=== PATIENT | male | born 1960 | race Caucasian/White ===

== ENCOUNTER 2022-05-21 12:55 | Inpatient (IN) | payer OTHER ==
[~2022-05-21] VITALS: Ht 180.3 cm; Wt 68.9 kg
[~2022-05-21 12:55] MED LIST: FURO40TA5 PO; SPIR100T5 PO; URSO300C24 PO
[2022-05-21 13:00] VITALS: BP_SYST 128
--- NOTE | 2022-05-21 13:46 | NUR ---
Jenna bahena in [facility] - 05/21/22 at 1353 by [email or web address] WENT TO TRIAG PT BUT PT IS NO WHERE TO BE FOUND. LOOKED IN WAITING ROOM, OUTSIDE ER , AND BATHROOM BUT NO ANSWER.
--- NOTE | 2022-05-21 13:55 | NUR ---
RECEIVED PT FROM GHASSAN SETHI. PT HAS C/O RIGHT NECK PAIN. PT HAS LYMPH INFLAMMATION DUE TO CANCER DX. PT IS AAOX4. NORMAL S1S2 NOTED, SINUS TACH HR 100'S. PT DENIES C/P AND PRESSURE. RESP SHALLOW, TACHY AT 32BPM. DR. ORTIZ MADE AWARE. ON R/A 02 SAT AT 97%. RHOCHI NOTED TO BILATERAL LOWER LOBES. PT HAS NAUSEA. DENIES DIARRHEA AND CONSTIPATION. DISTAL PULSES NORMAL, SKIN WARM, CAP REFILL < 3 SECS, NO EDEMA. IV CATH PLACED TO RAC 20G. SIDERAILS UP X2.
[2022-05-21] MEDS ORDERED: IPRATROPIUM/ALBUTEROL SULFATE 3 ML AMPUL.NEB (DUONEB) ONE (14:06)
[2022-05-21] MEDS ORDERED: IPRATROPIUM/ALBUTEROL SULFATE 3 ML AMPUL.NEB (DUONEB) INH ONE (14:15)
[2022-05-21] MEDS ORDERED: DEXAMETHASONE SOD PHOSPHATE 10 MG/ML VIAL IVP ONE (14:15)
--- NOTE | 2022-05-21 14:30 | NUR ---
DR. ORTIZ TO BEDSIDE TO ASSESS PT.
--- NOTE | 2022-05-21 14:45 | NUR ---
EKG COMPLETED, LABS DRAWN.
[2022-05-21] MEDS ORDERED: NACL 0.9% 1,000 ML IV ONE ×2 (15:45→16:45)
[2022-05-21 16:06] LABS: ANION GAP 14 (5-15); CALCIUM 9.1 mg/dL (8.4-11.0); CHLORIDE 91 mmol/L (98-107); CREATININE 2.07 mg/dL (0.55-1.30); GLUCOSE 269 mg/dL (70-99); UREA NITROGEN, BLOOD 99 mg/dL (8-21)
[2022-05-21 16:18] LABS: ALANINE AMINOTRANSFERASE 24 U/L (12-78); ALBUMIN 3.1 g/dL (3.4-4.8); ASPARTATE AMINOTRANSFERASE 13 U/L (10-37); TOTAL BILIRUBIN 0.8 mg/dL (0.0-1.0)
[2022-05-21 16:25] LABS: GFR AFRICAN AMERICAN 42 mL/min (>90)
[2022-05-21 16:29] LABS: POTASSIUM 6.1 mmol/L (3.5-5.1)
[2022-05-21] MEDS ORDERED: METO25TA3 PO (16:34)
[2022-05-21] MEDS ORDERED: TACR0.5C PO ×2 (16:34)
[2022-05-21] MEDS ORDERED: PRED20TA PO (16:34)
[2022-05-21] MEDS ORDERED: SODIUM ZIRCONIUM CYCLOSILICATE 10 GM POWD.PACK PO ONE (16:45)
[2022-05-21 17:36] LABS: HEMATOCRIT 42.2 % (36-54); MEAN CORPUSCULAR VOLUME 88 fL (79.0-98.0); PLATELET COUNT (AUTO) 86 K/uL (130-430); RED BLOOD CELL COUNT(AUTO) 4.82 MIL/uL (4.2-6.2); RED CELL DISTRIBUTION WIDTH 12.5 % (9.0-15.0)
--- NOTE | 2022-05-21 17:36 | NUR ---
NS 1000 IV INITIATED AT 150ML/HOUR, STOP TIME 1237. LOKELMA PO GIVEN FOR K+=6L.1. REPORTED TO DR. ORTIZ THAT PT HAS MOUTH SORES AND REQUESTING SOMETHING TO HELP ENABLE HIM TO DRINK AND EAT.
[2022-05-21 17:40] LABS: WHITE BLOOD COUNT (AUTO) 0.3 K/uL (4.8-10.8)
[2022-05-21 18:18] LABS: BILIRUBIN,URINE NEGATIVE (NEGATIVE); BLOOD, URINE NEGATIVE (NEGATIVE); COLOR,URINE YELLOW (YELLOW); GLUCOSE,URINE NEGATIVE (NEGATIVE); KETONES,URINE NEGATIVE (NEGATIVE); LEUKOCYTE ESTERASE ,URINE NEGATIVE (NEGATIVE); NITRITE, URINE NEGATIVE (NEGATIVE); PH,URINE 5.5 (5.0-8.0); PROTEIN URINE TRACE (NEGATIVE); UROBILINOGEN,URINE 0.2 (0.2-1.0)
[2022-05-21 18:32] LABS: CLARITY/URINE SLIGHTLY HAZY (CLEAR)
--- NOTE | 2022-05-21 18:36 | NUR ---
ADAdmit bed requested Patient will be admitted to care of Dr. COMER. Admitted to TELEMETRY unit. Diagnosis DEHYDRATION, ANA Inpatient (Yes or No) YES Observation (Yes or No) NO Orientation concerns or request close to nursing station (Yes or No) NO Covid Status PENDING On vent or bipap NO Isolation requirements REVERSE ISOLATION Needs a sitter NO From Home (Yes or if No enter name of facility) YES Requires Dialysis (Yes or No) NO Med Rec Completed (Yes of No) YES
[2022-05-21 19:06] LABS: BACTERIA,URINE FEW /HPF (None Seen); RBC,URINE 0-3 /HPF (0-3)
[2022-05-21 19:07] LABS: MUCUS,URINE None Seen /LPF (None Seen); URINE AMORPHOUS URATE 2+ /HPF (None Seen)
[2022-05-21 19:11] LABS: BAND % (MANUAL) 16 % (0-6); BASOPHILS % (MANUAL) 0 % (0-2); EOSINOPHILS % (MANUAL) 0 % (0-7); LYMPHOCYTES % (MANUAL) 32 % (20-46); MONOCYTES % (MANUAL) 24 % (0-11)
--- NOTE | 2022-05-21 19:18 | NUR ---
ENDORSED ALL CARE TO GHASSAN CLEMENT. ALL QUESTIONS AND CONCERNS ADDRESSED.
[2022-05-21] MEDS: D5/0.45 NS 1,000 ML IV SCH ×2 (19:34→23:51)
--- NOTE | 2022-05-21 19:46 | NUR ---
Pt resting comfortably in bed, no signs of distress/discomfort. Breathing adequately on RA. Denies any pain/discomfort at this time. VSS.
[2022-05-21] MEDS ORDERED: TBO-FILGRASTIM 480 MCG/0.8 ML SYRINGE SUBCUT ONE (20:00)
[2022-05-21] MEDS ORDERED: CEFEPIME 2 GM in D5W 100 ML IV ONE (21:00)
--- NOTE | 2022-05-21 21:43 | NUR ---
Patient will be admitted to care of MD Ambrosio . Admitted to Tele unit, room 101A. Complete and up to date summary report printed. SBAR report given at bedside to receiving RN Paulino with opportunity for questions.
--- NOTE | 2022-05-21 22:05 | NUR ---
Admission Note Received patient from ER with diagnosis of DEHDRATIOn, ACUTE KIDNEY INJURY. Initial Plan of Care discussed-patient verbalized understanding. Oriented to room, call light, pain management and safety.
[2022-05-21 22:23] VITALS: BP_SYST 131
[2022-05-21 23:46] LABS: HEMOGLOBIN 14.4 g/dL (14.0-18.0); MEAN CORPUSCULAR HEMOGLOBIN 30 pg (27-31); MEAN CORPUSCULAR HGB CONC 34 % (32-36)
[2022-05-22] VITALS (11 sets, daily range): BP systolic 126–148
--- NOTE | 2022-05-22 03:14 | NUR ---
IV dislodged at this time Inserted new IV [id number]
--- NOTE | 2022-05-22 07:34 | NUR ---
CLOSING NOTES Patient resting in bed - no s/s pain or distress noted. Respirations even and unlabored - head of bed elevated. IV site patent - no s/s redness, infection, or infiltration. Bed locked and in lowest position. Call light within reach.
[2022-05-22 07:40] LABS: BASOPHILS % (AUTO) 0.1 % (0.0-2.0); EOSINOPHILS % (AUTO) 0.4 % (0.0-4.0); HEMATOCRIT 42.3 % (36-54); LYMPHOCYTES # (AUTO) 0.2 K/uL (1.0-5.5); LYMPHOCYTES % (AUTO) 35.9 % (20.5-51.5); MEAN CORPUSCULAR VOLUME 89 fL (79.0-98.0); MONOCYTES # (AUTO) 0.2 K/uL (0.0-1.0); MONOCYTES % (AUTO) 32.1 % (1.7-9.3); PLATELET COUNT (AUTO) 107 K/uL (130-430); RED BLOOD CELL COUNT(AUTO) 4.75 MIL/uL (4.2-6.2); RED CELL DISTRIBUTION WIDTH 12.6 % (9.0-15.0)
[2022-05-22 07:43] LABS: ALBUMIN 2.3 g/dL (3.4-4.8); CALCIUM 8.3 mg/dL (8.4-11.0); CREATININE 1.72 mg/dL (0.55-1.30); POTASSIUM 5.5 mmol/L (3.5-5.1); TOTAL BILIRUBIN 1.2 mg/dL (0.0-1.0)
--- NOTE | 2022-05-22 08:00 | NUR ---
late entry due to care 0800- pt stable c/o of mild sob. o2 saturation 95%. notin acute distress. vials stable res labored. ivf infusing well. will continue to monitor 0830- md dr cruz called and notified about condition. new order received. 1030- family at bed side. oral suctuon doen. mild yellow color secretion noted. denies any pain at this time. sr on tele. 2 l oxygen applied via nasal cannula. will conitnue to monitor
[2022-05-22] MEDS: CEFEPIME 2 GM in D5W 100 ML IV SCH ×2 (08:30→21:14)
--- NOTE | 2022-05-22 08:41 | NUR ---
Attending MD Dr Wright was called, re: MEDICATION ORDER FOR FEVER. SPOKE TO FEBRUARY.
[2022-05-22 09:03] LABS: INR 1.3 (0.80-1.20); PROTHROMBIN TIME 12.9 SECS (9.5-12.5)
[2022-05-22] MEDS: ALBUTEROL SULFATE 0.083% 2.5 MG/3 ML VIAL.NEB INH SCH ×5 (09:15→23:00)
[2022-05-22] MEDS ORDERED: PANTOPRAZOLE SODIUM 40 MG/VIAL (PROTONIX) IVP ONE (09:30)
--- NOTE | 2022-05-22 09:35 | NUR ---
CONSULTATION PAGED/CALLED Reason for Consultation: [] FEVER/SOB Person Who was Notified: [] BRITTANY Consulting Physician: [] DR KNOX Mobile Mechanic Specialty: [] ID Ordering Physician: [] DR LUIS
--- NOTE | 2022-05-22 09:36 | NUR ---
CONSULTATION PAGED/CALLED Reason for Consultation: [] SOB/FEVER Person Who was Notified: [] LENO Consulting Physician: [] DR CANCHOLA Asphalt Mixing Machine Operator Specialty: [] PULMO Ordering Physician: [] DR LUIS
[2022-05-22] MEDS: LIDOCAINE VISCOUS 2%, 15 ML UDC MM PRN ×2 (10:22→16:11)
[2022-05-22] MEDS: ACETAMINOPHEN 500 MG TABLET PO PRN ×2 (10:25→22:06)
--- NOTE | 2022-05-22 10:45 | NUR ---
as per pt takes prograft 1 mg in the morning 0.5mg 2 tabs and 1 mg in the night 0.5 mg 2 tabs entered in med. rec . pharmacist on duty verified with family. dr wisdom notified for med rec.
[2022-05-22] MEDS ORDERED: predniSONE 20 MG TABLET PO ONE (11:30)
[2022-05-22] MEDS ORDERED: predniSONE 10 MG TABLET PO ONE (11:30)
[2022-05-22] MEDS ORDERED: TACROLIMUS ANHYDROUS 1 MG CAPSULE (PROGRAF) PO ONE (11:30)
[2022-05-22] MEDS ORDERED: TACROLIMUS ANHYDROUS 0.5 MG CAPSULE (PROGRAF) PO ONE (11:30)
[2022-05-22 12:09] LABS: NEUTROPHILS # (AUTO) 0.2 K/uL (1.8-7.7); WHITE BLOOD COUNT (AUTO) 0.6 K/uL (4.8-10.8)
[2022-05-22 12:11] LABS: NEUTROPHILS % (AUTO) 31.5 % (40.0-70.0)
--- NOTE | 2022-05-22 12:15 | NUR ---
late entry due to care abg results notified to dr roque.
--- NOTE | 2022-05-22 12:20 | NUR ---
ONCO/ERICKA MD DR BARKER WAS CALLED, RE: WBC OF 0.6. SPOKE TO MAXIM.
[2022-05-22 12:40] LABS: HEMOGLOBIN 14.3 g/dL (14.0-18.0)
[2022-05-22 12:41] LABS: MEAN CORPUSCULAR HEMOGLOBIN 30 pg (27-31); MEAN CORPUSCULAR HGB CONC 34 % (32-36)
--- NOTE | 2022-05-22 13:30 | NUR ---
pt is having sob. looks in res distress. breathing tx given by RT. RES 30. O2 SATURATION 95%. DR COMER NOTIFIED. RECEIVED ORDER FOR ICU TRANSFER.
--- NOTE | 2022-05-22 14:25 | NUR ---
PT TRANSFERRED TO ICU IN STABLE CONDITION . REPORT GIVEN TO SALESPERSON MEN'S AND BOYS' CLOTHING .
[2022-05-22] MEDS: D5/0.45 NS 1,000 ML IV SCH (14:45)
--- NOTE | 2022-05-22 15:00 | NUR ---
REPORT RECEIVED FROM GHASSAN SANTACRUZ IN [facility]. PATIENT TRANSFERRED TO ICU BED 8. PATIENT SITTING SEMI FOWLERS IN BED ON O2 AT 2LPM VIA NASAL CANNULA. O2 SATURATION 95%. PATIENT STATES HE IS ONLY MILDLY SHORT OF BREATH WHEN MOVING AROUND. VITALS SIGNS ARE STABLE WITH SAFETY PRECAUTIONS IN PLACE. 22 GAUGE IV TO THE RIGHT FOREARM ON TRANSFER WITH IV FLUIDS AT BEDSIDE. SECONDARY IV STARTED AND NEW BAG OF IV FLUIDS INITIATED. PATIENT COMPLAINS OF 5/10 PAIN TO MOUTH DUE TO MUCOSITIS; PRN MEDICATION GIVEN.
--- NOTE | 2022-05-22 17:28 | NUR ---
Called Ruba Buitrago with a consult, he will be here later today
--- NOTE | 2022-05-22 17:37 | NUR ---
Called Dr. Mac with a consult,spoke with Zeinab from the exchange
[2022-05-22 18:07] LABS: CALCIUM 8.4 mg/dL (8.4-11.0); CREATININE 1.5 mg/dL (0.55-1.30)
--- NOTE | 2022-05-22 20:00 | NUR ---
OPENING NOTE PT A0X4 AND LAYING IN THE BED WITH AND DAUGHTER AT THE BEDSIDE. PT HAS O2 AT 2LPM VIA NASAL CANNULA. O2 SATURATION 98%. ALL SAFETY PRECAUTIONS ARE IN PLACE. PT HAS 22 GAUGE IV TO THE RIGHT FOREARM AND 20 G IN LEFT F/A WITH FLUIDS INFUSING. PATIENT COMPLAINS OF 5/10 PAIN TO MOUTH DUE TO MUCOSITIS. WILL MEDICATED FOR THE PAIN
--- NOTE | 2022-05-22 20:30 | NUR ---
LOOSE STOOL PT HAD LOOSE STOOL BUT ALSO URINATED SO WILL OBTAIN SAMPLE WITH NEXT STOOL
[2022-05-22] MEDS ORDERED: TACROLIMUS ANHYDROUS 1 MG CAPSULE (PROGRAF) PO SCH (21:00)
[2022-05-22] MEDS: TBO-FILGRASTIM 480 MCG/0.8 ML SYRINGE SUBCUT SCH ×2 (21:00→21:30)
--- NOTE | 2022-05-22 21:00 | NUR ---
PAIN MEDS PT GIVEN LIDOCAINE FOR MOUTH PAIN HE RATED 6/10
[2022-05-22] MEDS ORDERED: TEMAZEPAM 7.5 MG CAPSULE ONE (22:07)
--- NOTE | 2022-05-22 22:30 | NUR ---
INSOMNIA/ANXIETY PT C/O OF NOT BEING ABLE TO SLEEP AND FEELING ANXIOUS. MD WAS CALLED
--- NOTE | 2022-05-22 22:35 | NUR ---
CALLED/ DR JOSE DE LUNA PT C/O ANXIETY AND ANXIOUS. ORDER RESTORIL 7.5MG PRN QHS
--- NOTE | 2022-05-22 23:50 | NUR ---
PAIN PT C/O BODY BACK PAIN FORM THEBED. RATES PAIN 5/10 PT GIVEN TYLENOL.
[2022-05-23] VITALS (23 sets, daily range): BP systolic 105–156
[2022-05-23] MEDS: D5/0.45 NS 1,000 ML IV SCH ×2 (00:45→11:37)
[2022-05-23] MEDS: ALBUTEROL SULFATE 0.083% 2.5 MG/3 ML VIAL.NEB INH SCH ×6 (03:00→23:00)
[2022-05-23] MEDS: LIDOCAINE VISCOUS 2%, 15 ML UDC MM PRN ×3 (04:45→20:45)
--- NOTE | 2022-05-23 07:05 | NUR ---
Received report from shiftman RN, and assumed patient care.
[2022-05-23 07:29] LABS: EOSINOPHILS % (AUTO) 0.4 % (0.0-4.0); HEMATOCRIT 42.1 % (36-54); LYMPHOCYTES # (AUTO) 0.3 K/uL (1.0-5.5); LYMPHOCYTES % (AUTO) 20.6 % (20.5-51.5); MEAN CORPUSCULAR VOLUME 88 fL (79.0-98.0); MONOCYTES # (AUTO) 0.7 K/uL (0.0-1.0); MONOCYTES % (AUTO) 44.8 % (1.7-9.3); PLATELET COUNT (AUTO) 91 K/uL (130-430); RED CELL DISTRIBUTION WIDTH 12.7 % (9.0-15.0)
[2022-05-23] MEDS: PANTOPRAZOLE SODIUM 40 MG/VIAL (PROTONIX) IVP SCH (08:08)
[2022-05-23] MEDS: predniSONE 10 MG TABLET PO SCH (08:08)
[2022-05-23] MEDS: METOPROLOL SUCCINATE 25 MG TAB.SR.24H (TOPROL XL) PO SCH (08:09)
[2022-05-23] MEDS: predniSONE 20 MG TABLET PO SCH (08:09)
[2022-05-23] MEDS: CEFEPIME 2 GM in D5W 100 ML IV SCH ×2 (08:10→20:48)
[2022-05-23 08:15] LABS: ALBUMIN 2.2 g/dL (3.4-4.8); CALCIUM 8.9 mg/dL (8.4-11.0); CREATININE 1.61 mg/dL (0.55-1.30); PHOSPHORUS 3.1 mg/dL (2.7-4.5); POTASSIUM 4.9 mmol/L (3.5-5.1); TOTAL BILIRUBIN 0.8 mg/dL (0.0-1.0)
--- NOTE | 2022-05-23 08:48 | NUR ---
Dr. Mac rounded at bedside, MD explained medical updates at bedside. Patient's (Violeta) at bedside, no additional questions noted at the moment, or new orders noted at the moment. Will reinforce if needed throughout the shift.
[2022-05-23] MEDS ORDERED: TACROLIMUS ANHYDROUS 1 MG CAPSULE (PROGRAF) PO SCH (09:00)
[2022-05-23 09:59] LABS: WHITE BLOOD COUNT (AUTO) 1.5 K/uL (4.8-10.8)
--- NOTE | 2022-05-23 09:59 | NUR ---
Received critical lab value (please see EMR for further details), will call Dr. Macedo for further instructions.
[2022-05-23 10:00] LABS: NEUTROPHILS # (AUTO) 0.5 K/uL (1.8-7.7)
--- NOTE | 2022-05-23 10:14 | NUR ---
Dr. Macedo called backMD is aware of critical lab value, no additional orders noted at the moment. Will reinforce if needed throughout the shift.
--- NOTE | 2022-05-23 10:25 | NUR ---
Dr. Cronin called for condition updates, is aware of critical lab values, will make some changes on meditech, no additional orders noted at the moment.
[2022-05-23] MEDS: MICAFUNGIN SODIUM 100 MG in NS 100 ML IV SCH (11:39)
[2022-05-23 11:44] LABS: NEUTROPHILS % (AUTO) 34.2 % (40.0-70.0)
--- NOTE | 2022-05-23 12:00 | NUR ---
Dr. Macedo rounded at bedside, MD is aware of patient's current situation no additional orders noted at the moment. Will reinforce if needed throughout the shift, MD is aware of abnormal values will wait for further instructions.
[2022-05-23] MEDS: D5NS 1,000 ML IV SCH ×2 (12:49→22:15)
--- NOTE | 2022-05-23 13:00 | NUR ---
Dr. Ambrosio rounded at bedside, provided medical updates to family members with patient. MD is OK with holding patient in ICU for one more day and will reevaluate tomorrow if patient is OK to be downgraded. No additional orders noted at the moment, will reinforce if needed throughout the shift.
--- NOTE | 2022-05-23 15:30 | NUR ---
Dietitian Recommendations * Pureed diet, Mauricio BID, Ensure Plus High Protein TID (supplements yield 1230 kcal/day, 60 gm protein/day) * Offer yogurts TID w/ meals * Encourage increase PO intakes LP, MS, RD Please refer to Nutrition Assessment for details. Addendum: 05/23/22 at [address] Amended: Links added.
[2022-05-23] MEDS: TBO-FILGRASTIM 480 MCG/0.8 ML SYRINGE SUBCUT SCH (16:23)
--- NOTE | 2022-05-23 16:39 | NUR ---
Patient had a BM, changed patient's linens and tolerated the big turns. Educated the patient about medications to help sleep for the night, and it is recommended to take during night time, in order to keep circadian rhythm within patient's range during daytime. Patient understands teaching and will reinforce if needed throughout the shift.
--- NOTE | 2022-05-23 20:00 | NUR ---
OPENING NOTE PT A0X4 AND LAYING IN THE BED WITH AT THE BEDSIDE. PT HAS O2 AT 2LPM VIA NASAL CANNULA. O2 SATURATION 98%. ALL SAFETY PRECAUTIONS ARE IN PLACE. PT HAS 22 GAUGE IV TO THE RIGHT FOREARM AND 20 G IN LEFT F/A WITH FLUIDS INFUSING. PATIENT COMPLAINS OF 4/10 PAIN TO MOUTH DUE TO MUCOSITIS. WILL MEDICATED FOR THE PAIN
[2022-05-23] MEDS ORDERED: LIDOCAINE VISCOUS 2%, 15 ML UDC ONE (20:44)
[2022-05-23] MEDS: TEMAZEPAM 7.5 MG CAPSULE PO PRN (20:45)
[2022-05-23] MEDS: ACETAMINOPHEN 500 MG TABLET PO PRN (20:49)
[2022-05-23] MEDS: TACROLIMUS ANHYDROUS 1 MG CAPSULE (PROGRAF) PO SCH (20:49)
[2022-05-24] VITALS (24 sets, daily range): BP systolic 78–161
[2022-05-24] MEDS: LIDOCAINE VISCOUS 2%, 15 ML UDC MM PRN (00:20)
[2022-05-24] MEDS ORDERED: LIDOCAINE VISCOUS 2%, 15 ML UDC ONE (00:22)
--- NOTE | 2022-05-24 01:00 | NUR ---
Paged career education teacher dr brown regarding patient's heart rate and condition. awaiting call back.
--- NOTE | 2022-05-24 01:20 | NUR ---
call back x2. awaiting call back
--- NOTE | 2022-05-24 01:49 | NUR ---
MD morelos called back. Primary nurse on phone with
--- NOTE | 2022-05-24 01:49 | NUR ---
Called pulmonary. awaiting call back.
[2022-05-24] MEDS ORDERED: FUROSEMIDE 40 MG/4 ML VIAL IVP ONE (02:00)
[2022-05-24] MEDS ORDERED: FUROSEMIDE 40 MG/4 ML VIAL ONE (02:02)
--- NOTE | 2022-05-24 02:24 | NUR ---
3rd callback to primary doctor
--- NOTE | 2022-05-24 02:28 | NUR ---
Dr brown called back. New orders received.
[2022-05-24] MEDS ORDERED: LORazepam 2 MG/ML VIAL IVP ONE (02:30)
[2022-05-24] MEDS ORDERED: LORazepam 2 MG/ML VIAL ONE (02:45)
[2022-05-24] MEDS: ALBUTEROL SULFATE 0.083% 2.5 MG/3 ML VIAL.NEB INH SCH ×6 (03:00→23:15)
--- NOTE | 2022-05-24 03:05 | NUR ---
called back. Reported ABG orders. New orders received.
[2022-05-24] MEDS ORDERED: AMIODARONE HCL IV SCH (05:45)
[2022-05-24] MEDS ORDERED: D5W IV SCH (05:45)
[2022-05-24] MEDS ORDERED: AMIODARONE HCL 450 MG in D5W 241 ML IV SCH (05:45)
[2022-05-24] MEDS: PANTOPRAZOLE SODIUM 40 MG/VIAL (PROTONIX) IVP SCH (08:27)
[2022-05-24] MEDS: predniSONE 20 MG TABLET PO SCH (08:28)
[2022-05-24] MEDS: predniSONE 10 MG TABLET PO SCH (08:29)
[2022-05-24] MEDS: ACETAMINOPHEN 500 MG TABLET PO PRN ×3 (08:30→21:57)
[2022-05-24] MEDS: CEFEPIME 2 GM in D5W 100 ML IV SCH ×2 (08:31→21:58)
[2022-05-24] MEDS: METOPROLOL SUCCINATE 25 MG TAB.SR.24H (TOPROL XL) PO SCH (08:31)
[2022-05-24 09:33] LABS: EOSINOPHILS % (AUTO) 0.1 % (0.0-4.0); HEMATOCRIT 42.1 % (36-54); LYMPHOCYTES # (AUTO) 0.3 K/uL (1.0-5.5); MEAN CORPUSCULAR VOLUME 87 fL (79.0-98.0); MONOCYTES % (AUTO) 0.6 % (1.7-9.3); NEUTROPHILS % (AUTO) 54.3 % (40.0-70.0); PLATELET COUNT (AUTO) 102 K/uL (130-430); RED BLOOD CELL COUNT(AUTO) 4.85 MIL/uL (4.2-6.2); RED CELL DISTRIBUTION WIDTH 12.7 % (9.0-15.0)
[2022-05-24] MEDS: TACROLIMUS ANHYDROUS 1 MG CAPSULE (PROGRAF) PO SCH ×2 (09:55→21:00)
[2022-05-24] MEDS ORDERED: FUROSEMIDE 20 MG/2 ML VIAL IVP ONE (10:00)
[2022-05-24] MEDS: ACYCLOVIR IV 500 MG in D5W 100 ML IV SCH (10:06)
[2022-05-24 10:25] LABS: ALBUMIN 1.9 g/dL (3.4-4.8); CALCIUM 8.8 mg/dL (8.4-11.0); CREATININE 2.02 mg/dL (0.55-1.30); POTASSIUM 5.1 mmol/L (3.5-5.1); TOTAL BILIRUBIN 0.7 mg/dL (0.0-1.0)
[2022-05-24 11:10] LABS: NEUTROPHILS # (AUTO) 0.4 K/uL (1.8-7.7); WHITE BLOOD COUNT (AUTO) 0.7 K/uL (4.8-10.8)
[2022-05-24] MEDS: D5NS 1,000 ML IV SCH ×2 (11:30→19:15)
[2022-05-24] MEDS: MICAFUNGIN SODIUM 100 MG in NS 100 ML IV SCH (11:58)
[2022-05-24] MEDS: ALBUMIN HUMAN 25% 100 ML IV SCH ×2 (13:35→15:35)
[2022-05-24] MEDS: TBO-FILGRASTIM 480 MCG/0.8 ML SYRINGE SUBCUT SCH (17:33)
[2022-05-24 19:12] LABS: CALCIUM 8.3 mg/dL (8.4-11.0); CREATININE 2.29 mg/dL (0.55-1.30); POTASSIUM 5.1 mmol/L (3.5-5.1)
--- NOTE | 2022-05-24 20:00 | NUR ---
OPENING NOTE PT A0X4 AND LAYING IN THE BED WITH AT THE BEDSIDE. PT CURRENTLY IS ON BIPAP O2 SATURATION 98%. ALL SAFETY PRECAUTIONS ARE IN PLACE. PT HAS 22 GAUGE IV TO THE RIGHT FOREARM AND 20 G IN LEFT F/A WITH FLUIDS INFUSING. PATIENT COMPLAINS OF 4/10 PAIN TO MOUTH DUE TO MUCOSITIS. WILL MEDICATED FOR THE PAIN
--- NOTE | 2022-05-24 20:30 | NUR ---
FEBRILE PT HAS TEMP OF 100.4. PT GIVEN TYLENOL AND COOLING MEASURE ARE IN PLACE.
[2022-05-24] MEDS: TEMAZEPAM 7.5 MG CAPSULE PO PRN (21:57)
[2022-05-24] MEDS: METOPROLOL TARTRATE 25 MG TABLET PO SCH (21:58)
--- NOTE | 2022-05-24 22:00 | NUR ---
BIPAP REMOVED PT REMOVED FROM BIPAP TO ADMINISTER MEDICATIONS. PT REPORTS FEELING BETTER AND DECREASE SOB. PT PLACED ON O2 5L VIA N/C AND SAT'S REMAIN @ 95%. PT TAKEN OFF OF BIPAP
[2022-05-25] VITALS (22 sets, daily range): BP systolic 94–129
[2022-05-25] MEDS: ALBUTEROL SULFATE 0.083% 2.5 MG/3 ML VIAL.NEB INH SCH ×6 (03:34→23:10)
[2022-05-25] MEDS: D5NS 1,000 ML IV SCH ×3 (04:40→21:25)
--- NOTE | 2022-05-25 06:45 | NUR ---
FEBRILE PT HAS TEMP OF 100.9 TYLENOL GIVEN
[2022-05-25 07:19] LABS: BASOPHILS % (AUTO) 0.1 % (0.0-2.0); EOSINOPHILS % (AUTO) 0.1 % (0.0-4.0); HEMATOCRIT 35.3 % (36-54); LYMPHOCYTES # (AUTO) 0.3 K/uL (1.0-5.5); LYMPHOCYTES % (AUTO) 23.7 % (20.5-51.5); MEAN CORPUSCULAR VOLUME 89 fL (79.0-98.0); MONOCYTES % (AUTO) 1.2 % (1.7-9.3); NEUTROPHILS % (AUTO) 74.9 % (40.0-70.0); PLATELET COUNT (AUTO) 79 K/uL (130-430); RED BLOOD CELL COUNT(AUTO) 3.98 MIL/uL (4.2-6.2); RED CELL DISTRIBUTION WIDTH 12.7 % (9.0-15.0)
[2022-05-25 07:53] LABS: NEUTROPHILS # (AUTO) 0.9 K/uL (1.8-7.7); WHITE BLOOD COUNT (AUTO) 1.2 K/uL (4.8-10.8)
[2022-05-25 08:01] LABS: ALBUMIN 2.2 g/dL (3.4-4.8); CALCIUM 8.1 mg/dL (8.4-11.0); CREATININE 1.89 mg/dL (0.55-1.30); POTASSIUM 4.7 mmol/L (3.5-5.1); TOTAL BILIRUBIN 0.6 mg/dL (0.0-1.0)
[2022-05-25] MEDS: CEFEPIME 2 GM in D5W 100 ML IV SCH ×2 (09:02→21:24)
[2022-05-25] MEDS: predniSONE 20 MG TABLET PO SCH (09:03)
[2022-05-25] MEDS: predniSONE 10 MG TABLET PO SCH (09:04)
[2022-05-25] MEDS: METOPROLOL TARTRATE 25 MG TABLET PO SCH ×2 (09:05→21:23)
[2022-05-25] MEDS: TACROLIMUS ANHYDROUS 1 MG CAPSULE (PROGRAF) PO SCH ×2 (09:05→21:23)
[2022-05-25] MEDS: ACYCLOVIR IV 500 MG in D5W 100 ML IV SCH (09:06)
[2022-05-25] MEDS: LIDOCAINE VISCOUS 2%, 15 ML UDC MM PRN ×2 (09:06→21:23)
[2022-05-25] MEDS: PANTOPRAZOLE SODIUM 40 MG/VIAL (PROTONIX) IVP SCH (09:07)
[2022-05-25] MEDS: ONDANSETRON HCL 4 MG/2 ML VIAL IVP PRN (09:07)
[2022-05-25] MEDS: MICAFUNGIN SODIUM 100 MG in NS 100 ML IV SCH (13:16)
[2022-05-25] MEDS: TBO-FILGRASTIM 480 MCG/0.8 ML SYRINGE SUBCUT SCH (17:03)
--- NOTE | 2022-05-25 20:00 | NUR ---
OPENING NOTE PT A0X4 AND LAYING IN THE BED WITH AT THE BEDSIDE. PT HAS O2 AT \5LPM VIA NASAL CANNULA. O2 SATURATION 95%. ALL SAFETY PRECAUTIONS ARE IN PLACE. PT HAS 22 GAUGE IV TO THE RIGHT FOREARM AND 20 G IN LEFT F/A WITH FLUIDS INFUSING. PT HAS YANKER AND IS ABLE TO SELF SUCTION. PT HAS CONDOM CATH WITH ANDREAS COLOR URINE DRAINING TO GRAVITY.PATIENT COMPLAINS OF 4/10 PAIN TO MOUTH DUE TO MUCOSITIS. WILL MEDICATED FOR THE PAIN
--- NOTE | 2022-05-25 20:15 | NUR ---
FEBRILE PT HAD TEMP OF 100.9 AND TYLENOL WAS GIVEN
--- NOTE | 2022-05-25 20:30 | NUR ---
DIARREHA PT HAD EPISODE IF DIARRHEA AND WAS UNBALE TI CALL FOR NURSE. PT CLEANED AND CALL WILL BE PLACED TO
--- NOTE | 2022-05-25 21:00 | NUR ---
MD CALLED REPORTED FROM DAYSHIFT PT HAD 6-8 LOOSE STOOLS. MD CALLED AND LOPERAMIDE ORDER AND PT ALSO RQUESTED HIS TRAZADONE HE TAKES AT HOME TO BE ORDERED.
[2022-05-25] MEDS: ACETAMINOPHEN 500 MG TABLET PO PRN (21:23)
[2022-05-25] MEDS ORDERED: LOPERAMIDE HCL 2 MG CAPSULE PO PRN (21:30)
[2022-05-25] MEDS ORDERED: LOPERAMIDE HCL 2 MG CAPSULE PO ONE (21:30)
[2022-05-26] VITALS (22 sets, daily range): BP systolic 95–128
[2022-05-26] MEDS: traZODone HCL 50 MG TABLET (DESYREL) PO PRN ×2 (00:20→22:08)
[2022-05-26] MEDS: ALBUTEROL SULFATE 0.083% 2.5 MG/3 ML VIAL.NEB INH SCH ×6 (03:20→23:31)
[2022-05-26] MEDS: D5NS 1,000 ML IV SCH ×3 (04:30→20:37)
[2022-05-26 07:08] LABS: BASOPHILS % (AUTO) 0.1 % (0.0-2.0); EOSINOPHILS % (AUTO) 0.4 % (0.0-4.0); HEMATOCRIT 29.6 % (36-54); LYMPHOCYTES # (AUTO) 0.3 K/uL (1.0-5.5); LYMPHOCYTES % (AUTO) 13.2 % (20.5-51.5); MEAN CORPUSCULAR VOLUME 89 fL (79.0-98.0); MONOCYTES # (AUTO) 0.2 K/uL (0.0-1.0); MONOCYTES % (AUTO) 7.8 % (1.7-9.3); NEUTROPHILS # (AUTO) 1.6 K/uL (1.8-7.7); NEUTROPHILS % (AUTO) 78.5 % (40.0-70.0); PLATELET COUNT (AUTO) 67 K/uL (130-430); RED BLOOD CELL COUNT(AUTO) 3.34 MIL/uL (4.2-6.2); RED CELL DISTRIBUTION WIDTH 13.1 % (9.0-15.0); WHITE BLOOD COUNT (AUTO) 2.1 K/uL (4.8-10.8)
[2022-05-26 07:13] LABS: ALBUMIN 1.5 g/dL (3.4-4.8); CALCIUM 8.1 mg/dL (8.4-11.0); CREATININE 1.61 mg/dL (0.55-1.30); POTASSIUM 3.8 mmol/L (3.5-5.1); TOTAL BILIRUBIN 0.5 mg/dL (0.0-1.0)
[2022-05-26] MEDS: LIDOCAINE VISCOUS 2%, 15 ML UDC MM PRN ×4 (09:16→22:08)
[2022-05-26] MEDS: predniSONE 10 MG TABLET PO SCH (10:09)
[2022-05-26] MEDS: TACROLIMUS ANHYDROUS 1 MG CAPSULE (PROGRAF) PO SCH ×2 (10:09→20:37)
[2022-05-26] MEDS: PANTOPRAZOLE SODIUM 40 MG/VIAL (PROTONIX) IVP SCH (10:09)
[2022-05-26] MEDS: predniSONE 20 MG TABLET PO SCH (10:09)
[2022-05-26] MEDS: CEFEPIME 2 GM in D5W 100 ML IV SCH ×2 (10:10→20:36)
[2022-05-26] MEDS: METOPROLOL TARTRATE 25 MG TABLET PO SCH ×2 (10:10→20:36)
[2022-05-26] MEDS: ACYCLOVIR IV 500 MG in D5W 100 ML IV SCH (12:05)
[2022-05-26] MEDS: MICAFUNGIN SODIUM 100 MG in NS 100 ML IV SCH (13:17)
--- NOTE | 2022-05-26 17:08 | NUR ---
CONSULTATION PAGED/CALLED GI Reason for Consultation: G-TUBE Person Who was Notified: [facility]CHANGE Consulting Physician: DR JIMENES Meat Butcher Specialty: GI Ordering Physician: NAHOMI
[2022-05-26] MEDS: TBO-FILGRASTIM 480 MCG/0.8 ML SYRINGE SUBCUT SCH (18:20)
[2022-05-26] MEDS: HYDROCORTISONE SOD SUCC 100 MG/2 ML VIAL IVP SCH (20:36)
[2022-05-27] VITALS (8 sets, daily range): BP systolic 84–135
[2022-05-27] MEDS: ALBUTEROL SULFATE 0.083% 2.5 MG/3 ML VIAL.NEB INH SCH ×4 (03:05→15:15)
[2022-05-27] MEDS: D5NS 1,000 ML IV SCH ×3 (04:46→20:54)
[2022-05-27 06:39] LABS: BASOPHILS % (AUTO) 0.1 % (0.0-2.0); HEMATOCRIT 31.2 % (36-54); LYMPHOCYTES # (AUTO) 0.3 K/uL (1.0-5.5); MEAN CORPUSCULAR VOLUME 90 fL (79.0-98.0); MONOCYTES # (AUTO) 0.2 K/uL (0.0-1.0); MONOCYTES % (AUTO) 1.4 % (1.7-9.3); NEUTROPHILS # (AUTO) 13.3 K/uL (1.8-7.7); NEUTROPHILS % (AUTO) 96.5 % (40.0-70.0); PLATELET COUNT (AUTO) 88 K/uL (130-430); RED BLOOD CELL COUNT(AUTO) 3.49 MIL/uL (4.2-6.2); RED CELL DISTRIBUTION WIDTH 13.4 % (9.0-15.0); WHITE BLOOD COUNT (AUTO) 13.8 K/uL (4.8-10.8)
[2022-05-27 06:51] LABS: ALBUMIN 1.4 g/dL (3.4-4.8); CALCIUM 7.3 mg/dL (8.4-11.0); CREATININE 1.57 mg/dL (0.55-1.30); POTASSIUM 4.2 mmol/L (3.5-5.1); TOTAL BILIRUBIN 0.5 mg/dL (0.0-1.0)
--- NOTE | 2022-05-27 08:07 | NUR ---
Dr Bay rounded and discussed PEG tube placement at bedside with patient, discussed risk and benefit of the procedure and patient voiced understanding. Dr Bay stated the PEG tube placement is scheduled for tomorrow morning at 0900.
[2022-05-27] MEDS: LIDOCAINE VISCOUS 2%, 15 ML UDC MM PRN (09:43)
[2022-05-27] MEDS: PANTOPRAZOLE SODIUM 40 MG/VIAL (PROTONIX) IVP SCH (09:43)
[2022-05-27] MEDS: HYDROCORTISONE SOD SUCC 100 MG/2 ML VIAL IVP SCH ×2 (09:43→20:53)
[2022-05-27] MEDS: METOPROLOL TARTRATE 25 MG TABLET PO SCH ×2 (09:44→20:53)
[2022-05-27] MEDS: CEFEPIME 2 GM in D5W 100 ML IV SCH ×2 (09:44→20:52)
[2022-05-27] MEDS: TACROLIMUS ANHYDROUS 1 MG CAPSULE (PROGRAF) PO SCH ×2 (09:44→20:53)
[2022-05-27] MEDS: ACYCLOVIR IV 500 MG in D5W 100 ML IV SCH (11:24)
[2022-05-27] MEDS: MICAFUNGIN SODIUM 100 MG in NS 100 ML IV SCH (12:51)
--- NOTE | 2022-05-27 15:45 | NUR ---
Nutrition F/U RDN reviewed pt's current EMR including diet hx, physician notes, nursing notes, pertinent labs/meds/procedures, care trends, and care activity. Shortened note d/t high RD workload. Admitting Diagnosis: Dehydration, ANA PMHx: Neck CA (Dx: ~4 mo ago per report), recent chemotherapy, liver transplant, and pacemaker per physician notes. 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 Patient reports that his appetite is great and he feels hungry often, however s/p his first high dose of chemotherapy has caused mouth sores. He reports he has a hard time eating certain foods. Per pt, he likes the Ensure TID and reports drinking these SKI GUIDE at home. Patient endorses liquids, lukewarm coffee, water, and ensure as tolerable. Pt reports the yogurts are too cold and acidic; pt asked to not receive them any longer. Patient agreeable to nutrition education: RDN and patient discussed how to increase calories/ high kcal foods and tips to help with common nutrition problems associated with cancer treatment; handout provided; all questions answered. Patient was encouraged to call for RDN if nutrition related questions/ concerns arise. Pt reports he will have g-tube placed to use as supplement for PO. Will continue to monitor. -- 05/23: RD spoke w/ pt's at bedside while pt was asleep. She reported that pt's appetite has declined over the past 2 weeks since starting his first dose of chemotherapy. Use of men's One-A-Day MVI SKI GUIDE. Pureed lunch tray seen at bedside -- reported that this diet texture is preferred at this time d/t pt's mouth sores. Current Diet Order/Nutrition Support: Pureed diet + Ensure Plus HP TID + Mauricio BID x 3 days Recent Weight Change Yes - 8# wt loss/5% wt change within 2 weeks (severe) LBM 05/26 x 1; Diarrhea reported 05/25: 6-8 loose stools, now resolved Usual Diet At Home Regular; avoids bananas d/t liver transplant 6 yrs ago per Current % PO Negligible 17.5% x 2 meals Skin Integrity Comment: Theodore scale: 17: mass on neck per RN report; erythema on face, upper chest, posterior back, posterior coccyx Estimated Energy Expenditure (kcals/day) 7584-5713 (30-35 kcal/kg IBW d/t CA, wt gain promotion) Estimated Protein Required (g/day) 94-117 (1.2-1.5 gm/kg IBW d/t CA, wt gain promotion) Estimated Fluid Required (l/day) 2.3-2.7 (1 ml/kcal/day for maintenance) Problem/Etiology/Signs/Symptoms Suboptimal nutritional intakes R/T lack of appetite AEB negligible PO intake records * Ongoing Chewing/swallowing difficulties R/T pathophysiological factors AEB mouth sores * Ongoing Risk for malnutrition R/T unintentional wt loss AEB 8# wt loss/5% wt change within 2 weeks (severe) * Ongoing Expected Outcomes/Goals - Monitor appetite and PO intakes w/ goal of pt meeting >75% of estimated nutritional needs, labs trending WNL, normal GI function, and skin integrity/wt maintenance Dietitian Recommendations * Continue pureed diet, Mauricio BID, Ensure Plus High Protein TID (Supplements yield 1230 kcal and 65g protein per day) * Encourage increased PO intakes * If/when g-tube is placed, consult RD Follow Up High Risk: F/U in 2-3days
--- NOTE | 2022-05-27 15:50 | NUR ---
Dietitian Recommendations * Continue pureed diet, Mauricio BID, Ensure Plus High Protein TID (Supplements yield 1230 kcal and 65g protein per day) * Encourage increased PO intakes * If/when g-tube is placed, consult RD Pleasen refer to nutrition f/u for details, thanks! CC, MPH, RDN
--- NOTE | 2022-05-27 19:00 | NUR ---
ICU Transfer Received report from GHASSAN Finley. Patient on Nasal Cannula 3LPm. IV to RFA 20G. On D5NS at 120ml/hr. No pain noted, NO SOB, no Distress. Patient on condom cath draining yellow urine to gravity. Vitals signs taken and recorded. Patient on Isolation due to being neutropenic. Patient oriented to room, call light within reach, all needs met and will endorse to operation shift supervisor nurse.
--- NOTE | 2022-05-27 19:20 | NUR ---
OPENING NOTES: Patient received from AM shift nurse. Patient is AA&Ox4 able to make needs known, no s/s of distress is noted at this time. Chest rise is even and unlabored on 3L via NC and on tele monitoring. Patient is currently stable at this time and is on reverse isolation due to immunity. Safety measures are in place as per protocol and patient has call light within reach. Will resume care and continue to monitor patient throughout the shift.
[2022-05-28] VITALS (17 sets, daily range): BP systolic 85–127
--- NOTE | 2022-05-28 00:30 | NUR ---
PATIENT RESTING: Patient resting quietly. No acute distress noted. Vital signs within normal range. Patient is now NPO since Midnight pending GT peg placement scheduled this morning.
[2022-05-28] MEDS: ALBUTEROL SULFATE 0.083% 2.5 MG/3 ML VIAL.NEB INH SCH ×6 (01:29→15:49)
--- NOTE | 2022-05-28 06:28 | NUR ---
CLOSING NOTES: Patient is in bed resting no s/s of distress is noted at this time, denies any pain or discomfort. GI was at bed side to update the patient on the plan for PEG tube placement. Spoke to GI and was notified that the placement would be completed at bedside at about 1000 and that IV ABX CEFAZOLIN should be administered around 0930. Patient is currently stable at this time, safety protocols are in place and call light is within reach. Will differ further care to AM shift for continuity of care.
[2022-05-28] MEDS: D5NS 1,000 ML IV SCH ×3 (06:35→23:15)
[2022-05-28] MEDS ORDERED: fentaNYL CITRATE/PF 100 MCG/2 ML AMP ONE (07:19)
[2022-05-28] MEDS ORDERED: SIMETHICONE 40 MG/0.6 ML ML ONE (07:19)
[2022-05-28] MEDS ORDERED: MIDAZOLAM HCL 5 MG/5 ML VIAL ONE (07:20)
[2022-05-28] MEDS ORDERED: CEFAZOLIN 1 GM IVPB PREMIX 50 ML IV ONE (08:00)
[2022-05-28 08:09] LABS: INR 1.3 (0.80-1.20); PROTHROMBIN TIME 13.2 SECS (9.5-12.5)
[2022-05-28] MEDS: PANTOPRAZOLE SODIUM 40 MG/VIAL (PROTONIX) IVP SCH (09:27)
[2022-05-28] MEDS: HYDROCORTISONE SOD SUCC 100 MG/2 ML VIAL IVP SCH ×2 (09:27→21:29)
[2022-05-28] MEDS: CEFEPIME 2 GM in D5W 100 ML IV SCH ×2 (09:28→21:30)
[2022-05-28] MEDS: ACYCLOVIR IV 500 MG in D5W 100 ML IV SCH (11:13)
[2022-05-28] MEDS: MICAFUNGIN SODIUM 100 MG in NS 100 ML IV SCH (11:14)
[2022-05-28] MEDS: ONDANSETRON HCL 4 MG/2 ML VIAL IVP PRN ×2 (12:07→12:08)
--- NOTE | 2022-05-28 12:34 | NUR ---
RN REQUESTED TO ATTEMPT THE EVALUATION TOMORROW BECAUSE THE PATIENT RECENTLY RETURNED FROM PEG PLACEMENT.
[2022-05-28] MEDS ORDERED: ALBUMIN HUMAN 5% 250 ML IV ONE (15:45)
[2022-05-28] MEDS ORDERED: NOREPINEPHRINE BITARTRATE 4 MG in D5W 246 ML IV PRN (16:30)
[2022-05-28 16:54] LABS: WHITE BLOOD COUNT (AUTO) 20.1 K/uL (4.8-10.8)
[2022-05-28 16:58] LABS: MEAN CORPUSCULAR VOLUME 90 fL (79.0-98.0); PLATELET COUNT (AUTO) 148 K/uL (130-430); RED BLOOD CELL COUNT(AUTO) 2.39 MIL/uL (4.2-6.2); RED CELL DISTRIBUTION WIDTH 13.4 % (9.0-15.0)
[2022-05-28 17:06] LABS: HEMATOCRIT 21.5 % (36-54)
--- NOTE | 2022-05-28 17:09 | NUR ---
RECEIVED REPORT FROM YOGESH FERRELL USING SBAR METHOD PATIENT IS ON LEVOPHED @ 0.3 MCG/KG/MIN. PATIENT HEART RATE 103, RESPIRATORY RATE 21, OXYGEN SATURATION 100 BLOOD PRESSURE 85/50, ON 2 L OF OXYGEN VIA NASAL CANNULA. WILL CONTINUE TO MONITOR.
[2022-05-28 17:20] LABS: CALCIUM 7.6 mg/dL (8.4-11.0); CREATININE 1.93 mg/dL (0.55-1.30); POTASSIUM 3.8 mmol/L (3.5-5.1)
[2022-05-28 17:50] LABS: BAND % (MANUAL) 6 % (0-6); BASOPHILS % (MANUAL) 0 % (0-2); EOSINOPHILS % (MANUAL) 0 % (0-7); LYMPHOCYTES % (MANUAL) 3 % (20-46); METAMYELOCYTES % 3 % (0-0); MONOCYTES % (MANUAL) 1 % (0-11); MYELOCYTES % 3 % (0-0)
[2022-05-28] MEDS ORDERED: INSULIN REGULAR, HUMAN 100 UNITS/ML, 10 ML VIAL (humuLIN R) SUBCUT PRN (18:00)
--- NOTE | 2022-05-28 18:15 | NUR ---
PATIENT LOKI IS AT THE BEDSIDE EXPRESSED CONCERN ABOUT PATIENT NOT GETTING THE PROGRAF @ 0900. CALLED PHARMACY AND ABLE TO TALK TO TARAS , AND HE TOLD ME THAT IT IS TOO CLOSE AND GIVE THE NEXT DOSE AT 2100.
--- NOTE | 2022-05-28 18:30 | NUR ---
CALLED DR. KATIE Abraham WITH A CONSULT,SPOKE WITH MARAH FROM THE EXCHANGE
--- NOTE | 2022-05-28 18:37 | NUR ---
PATIENT LOKI IS AT THE BEDSIDE INFORMED HER ABOUT THE PATIENT HEMATOCRIT LEVEL, AND THERE IS AN ORDER OF 2 UNIT PRBC, EXPLAINED THE CONSENT FOR BLOOD TRANSFUSION, SIGNED THE CONSENT AT 1837.
--- NOTE | 2022-05-28 19:00 | NUR ---
RECEIVED CALL FROM DR. WILSON , AND INFORM HIM ABOUT THE CONSULT IN CASE SURGICAL NEED FOR EXPL LAP FOR BLEEDING, DR. WILSON SAID TO CONSULT .
--- NOTE | 2022-05-28 19:34 | NUR ---
0800: NPO FOR PEG PLACEMENT TODAY WITH DR. ABARCA. LEFT NECK MASS, HARD UPON PALPATION. NO S/S OF ANY ACUTE DISTRESS NOTED WILL CONTINUE TO MONITOR PATIENT. 1200: PATIENT LEFT THE UNIT FOR EGD AND PEG PLACEMENT PLANNED. 1330: PATIENT BACK FROM GI LAB WITH PEG IN PLACE, W/O ANY ACTIVE BLEEDING NOTED. DROWSY AND CONFUSED WILL CONTINUE TO MONITOR PATIENT. SWALLOWING ABILITY MARGINAL AT BEST EVIDENCE OF COUGHING EACH TIME TAKING ORAL FLUID 1530: STILL DROWSY AND CONFUSED, WITH LOW BP SBP IN 70-[address] Panda COMER ON THE UNIT WITH NEW ORDER TO ADMINISTER IV ALBUMIN, CONTINUE TO MONITOR PATIENT. 1600: BP STILL LOW BUT PATIENT IS MORE AROUSABLE. DR. Panda COMER STILL ON THE UNIT WITH NEW ORDER TO TRANSFER PATIENT TO ICU AND START ON IV LEVOPHED FOR BP SUPPORT. 1700: PATIENT WAS TRANSFER TO ICU REPORT GIVEN TO GHASSAN PARDHAN. 1800: ABNORMAL LAB RESULT RELAYED TO DR. Panda COMER WITH NEW ORDER TO TRANSFUSE 2 UNIT PRBC, CT OF THE ABDOMEN W/O CONTRAST. AND SURGICAL CONSULT DR. Panda WILSON FOR POSSIBLE SURGICAL INTERVENTION.
[2022-05-28] MEDS: METOPROLOL TARTRATE 25 MG TABLET PO SCH ×2 (21:00→22:15)
[2022-05-28] MEDS: TACROLIMUS ANHYDROUS 1 MG CAPSULE (PROGRAF) PO SCH ×2 (21:00→21:28)
[2022-05-29] VITALS (27 sets, daily range): BP systolic 105–151
[2022-05-29] MEDS: ALBUTEROL SULFATE 0.083% 2.5 MG/3 ML VIAL.NEB INH SCH ×7 (00:18→22:52)
[2022-05-29 06:57] LABS: BASOPHILS % (AUTO) 0.1 % (0.0-2.0); HEMATOCRIT 24.1 % (36-54); LYMPHOCYTES # (AUTO) 0.6 K/uL (1.0-5.5); LYMPHOCYTES % (AUTO) 4.8 % (20.5-51.5); MEAN CORPUSCULAR VOLUME 88 fL (79.0-98.0); MONOCYTES # (AUTO) 0.5 K/uL (0.0-1.0); MONOCYTES % (AUTO) 3.9 % (1.7-9.3); NEUTROPHILS # (AUTO) 11.1 K/uL (1.8-7.7); PLATELET COUNT (AUTO) 103 K/uL (130-430); RED BLOOD CELL COUNT(AUTO) 2.76 MIL/uL (4.2-6.2); RED CELL DISTRIBUTION WIDTH 13.5 % (9.0-15.0); WHITE BLOOD COUNT (AUTO) 12.2 K/uL (4.8-10.8)
--- NOTE | 2022-05-29 07:02 | NUR ---
Pt resting quietly in bed. Neurologically unchanged. 2lnc 25RR 96%. Weaned off levo overnight. Received 2u pRBC overnight. MAP>65. SR on monitor. Kept NPO xice chips, no BM overnight. UOP adequate. DL PICC placed overnight, site unremarkable, CXR neg PTX. PIVx2, sites unremarkable. Safety/aspiration precautions cont.
[2022-05-29 07:16] LABS: NEUTROPHILS % (AUTO) 91.2 % (40.0-70.0)
--- NOTE | 2022-05-29 07:24 | NUR ---
HOLD PHYSICAL THERAPY EVALUATION SINCE THE PATIENT HAS BEEN TRANSFERRED TO ICU. PLAN: AWAIT NEW ORDER WHEN THE PATIENT'S MEDICAL CONDITION HAS IMPROVED.
[2022-05-29 07:33] LABS: ALBUMIN 1.9 g/dL (3.4-4.8); CALCIUM 7.6 mg/dL (8.4-11.0); CREATININE 1.7 mg/dL (0.55-1.30); POTASSIUM 3.8 mmol/L (3.5-5.1); TOTAL BILIRUBIN 0.8 mg/dL (0.0-1.0)
[2022-05-29] MEDS: D5NS 1,000 ML IV SCH ×2 (07:35→15:55)
--- NOTE | 2022-05-29 07:45 | NUR ---
Consult called to Dr. Asif as Dr. Dacosta stated he was not available. I spoke with Dr. Asif directly regarding consult, and so did the bedside RN.
[2022-05-29] MEDS: HYDROCORTISONE SOD SUCC 100 MG/2 ML VIAL IVP SCH ×2 (08:54→21:00)
[2022-05-29] MEDS: PANTOPRAZOLE SODIUM 40 MG/VIAL (PROTONIX) IVP SCH ×2 (08:54→21:00)
[2022-05-29] MEDS ORDERED: NS 500 ML IV ONE (09:00)
[2022-05-29] MEDS: METOPROLOL TARTRATE 25 MG TABLET PO SCH ×2 (09:00→21:00)
[2022-05-29] MEDS: TACROLIMUS ANHYDROUS 1 MG CAPSULE (PROGRAF) PO SCH ×2 (09:21→21:00)
[2022-05-29] MEDS: ACYCLOVIR IV 500 MG in D5W 100 ML IV SCH (10:25)
--- NOTE | 2022-05-29 10:48 | NUR ---
0908 Taken off neutropenic precautions
[2022-05-29] MEDS: FLUCONAZOLE 200 mg/ NS 100 ML IV SCH (12:20)
[2022-05-29 13:15] LABS: HEMATOCRIT 23.5 % (36-54); MEAN CORPUSCULAR VOLUME 88 fL (79.0-98.0); PLATELET COUNT (AUTO) 100 K/uL (130-430); RED BLOOD CELL COUNT(AUTO) 2.67 MIL/uL (4.2-6.2); RED CELL DISTRIBUTION WIDTH 13.3 % (9.0-15.0); WHITE BLOOD COUNT (AUTO) 12.4 K/uL (4.8-10.8)
[2022-05-29 14:58] LABS: BAND % (MANUAL) 6 % (0-6); LYMPHOCYTES % (MANUAL) 10 % (20-46); MONOCYTES % (MANUAL) 9 % (0-11)
[2022-05-29 14:59] LABS: BASOPHILS % (MANUAL) 0 % (0-2); EOSINOPHILS % (MANUAL) 0 % (0-7)
[2022-05-29 16:39] LABS: HEMATOCRIT 24.3 % (36-54); MEAN CORPUSCULAR VOLUME 89 fL (79.0-98.0); PLATELET COUNT (AUTO) 101 K/uL (130-430); RED BLOOD CELL COUNT(AUTO) 2.74 MIL/uL (4.2-6.2); RED CELL DISTRIBUTION WIDTH 13.5 % (9.0-15.0); WHITE BLOOD COUNT (AUTO) 11.4 K/uL (4.8-10.8)
[2022-05-29 17:00] LABS: BAND % (MANUAL) 2 % (0-6); BASOPHILS % (MANUAL) 0 % (0-2); EOSINOPHILS % (MANUAL) 0 % (0-7); LYMPHOCYTES % (MANUAL) 3 % (20-46); METAMYELOCYTES % 3 % (0-0); MONOCYTES % (MANUAL) 5 % (0-11); MYELOCYTES % 1 % (0-0)
[2022-05-30] VITALS (24 sets, daily range): BP systolic 119–150
[2022-05-30] MEDS: D5NS 1,000 ML IV SCH ×3 (00:15→17:57)
[2022-05-30] MEDS: ALBUTEROL SULFATE 0.083% 2.5 MG/3 ML VIAL.NEB INH SCH ×6 (03:00→23:18)
[2022-05-30 08:13] LABS: MEAN CORPUSCULAR VOLUME 90 fL (79.0-98.0); PLATELET COUNT (AUTO) 98 K/uL (130-430); RED BLOOD CELL COUNT(AUTO) 2.91 MIL/uL (4.2-6.2); RED CELL DISTRIBUTION WIDTH 13.4 % (9.0-15.0); WHITE BLOOD COUNT (AUTO) 14.1 K/uL (4.8-10.8)
[2022-05-30 08:41] LABS: INR 1.4 (0.80-1.20); PROTHROMBIN TIME 14.4 SECS (9.5-12.5)
[2022-05-30] MEDS: METOPROLOL TARTRATE 25 MG TABLET PO SCH ×2 (09:12→20:48)
[2022-05-30] MEDS: HYDROCORTISONE SOD SUCC 100 MG/2 ML VIAL IVP SCH ×2 (09:13→20:49)
[2022-05-30] MEDS: TACROLIMUS ANHYDROUS 1 MG CAPSULE (PROGRAF) PO SCH ×2 (09:13→20:50)
[2022-05-30] MEDS: PANTOPRAZOLE SODIUM 40 MG/VIAL (PROTONIX) IVP SCH ×2 (09:13→20:49)
[2022-05-30] MEDS: ACYCLOVIR IV 500 MG in D5W 100 ML IV SCH (09:16)
--- NOTE | 2022-05-30 10:50 | NUR ---
family educated on potential down grade and s/s to report, interested in understanding how to work feeding pump at home, provided brief education on feeding pumps and usage but will need to be educated on type available and prescribed order from provider
[2022-05-30] MEDS: FLUCONAZOLE 200 mg/ NS 100 ML IV SCH (11:28)
[2022-05-30 12:17] LABS: HEMATOCRIT 24.1 % (36-54); LYMPHOCYTES # (AUTO) 0.5 K/uL (1.0-5.5); LYMPHOCYTES % (AUTO) 4.3 % (20.5-51.5); MEAN CORPUSCULAR VOLUME 89 fL (79.0-98.0); MONOCYTES # (AUTO) 0.4 K/uL (0.0-1.0); NEUTROPHILS # (AUTO) 11.6 K/uL (1.8-7.7); RED CELL DISTRIBUTION WIDTH 13.7 % (9.0-15.0); WHITE BLOOD COUNT (AUTO) 12.5 K/uL (4.8-10.8)
[2022-05-30 12:40] LABS: ATYPICAL LYMPHOCYTES % 3 % (0-0); BAND % (MANUAL) 5 % (0-6); BASOPHILS % (MANUAL) 0 % (0-2); EOSINOPHILS % (MANUAL) 0 % (0-7); LYMPHOCYTES % (MANUAL) 5 % (20-46); METAMYELOCYTES % 5 % (0-0); MONOCYTES % (MANUAL) 5 % (0-11)
[2022-05-30 13:03] LABS: PLATELET COUNT (AUTO) 24 K/uL (130-430)
[2022-05-30 13:05] LABS: NEUTROPHILS % (AUTO) 92.7 % (40.0-70.0)
[2022-05-30] MEDS ORDERED: PHYTONADIONE 10 MG in NS 50 ML IV ONE (14:00)
--- NOTE | 2022-05-30 14:00 | NUR ---
Nutrition F/U RDN reviewed pt's current EMR including diet hx, physician notes, nursing notes, pertinent labs/meds/procedures, care trends, and care activity. Shortened note d/t high RD workload. Admitting Diagnosis: Dehydration, ANA PMHx: Neck CA (Dx: ~4 mo ago per report), recent chemotherapy, liver transplant, and pacemaker per physician notes. 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 Primary RN stated that he had to stop TF via GT earlier today d/t bleeding at the GT site -- paged GI and awaiting new plans. He stated pt is feeling hungry and was requesting clear liquids. Per EMR review, pt had GT placement 05/28; no diarrhea today; some dark stool and some oozing at the GT site noted; abd is soft and non-distended w/ hypoactive bowel sounds; LBM x1 05/30. Pt is not meeting nutritional needs and is at high risk of malnutrition. Current Diet Order/Nutrition Support: Jevity 1.2 at 40 ml/hr, Free Water Flush: 200 via GT x0 days Provides: 1152 kcal/day, 53 gm protein/day, and 775 ml free water/day Meets: 49% of lower end of estimated caloric needs and 56% of lower end of estimated protein needs Ht: 5'11"Wt: 152#/68.9 kg (05/23) Recent Weight Change Yes - 8# wt loss/5% wt change within 2 weeks (severe) Usual Diet At Home Regular; avoids bananas d/t liver transplant 6 yrs ago per Current % PO 75% x1 meal record since 05/28 Skin Integrity Comment: Theodore scale: 16 -- no PIs noted; mass on neck per RN report Estimated Energy Expenditure (kcals/day) 0489-9728 (30-35 kcal/kg IBW d/t CA, wt gain promotion) Estimated Protein Required (g/day) 94-117 (1.2-1.5 gm/kg IBW d/t CA, wt gain promotion) Estimated Fluid Required (l/day) 2.3-2.7 (1 ml/kcal/day for maintenance) Problem/Etiology/Signs/Symptoms Suboptimal nutritional intakes R/T lack of appetite AEB negligible PO intake records *Ongoing Chewing/swallowing difficulties R/T pathophysiological factors AEB mouth sores *Ongoing Risk for malnutrition R/T unintentional wt loss AEB 8# wt loss/5% wt change within 2 weeks (severe) *Ongoing Expected Outcomes/Goals - Monitor appetite and PO intakes w/ goal of pt meeting >75% of estimated nutritional needs, labs trending WNL, normal GI function, and skin integrity/wt maintenance Dietitian Recommendations * If/when medically appropriate, consider Jevity 1.5 at 60 ml/hr (goal rate), Mauricio BID, Free Water Flush: 250 ml Q6h via GT Provides: 2320 kcal/day, 97 gm protein/day, and 2094 ml free water/day Meets: 99% of lower end of estimated caloric needs and 103% of upper end of estimated protein needs * Consider ST swallow eval to further assess safety of PO diet Follow Up High Risk: F/U in 2-3 days
--- NOTE | 2022-05-30 14:05 | NUR ---
Dietitian Recommendations * If/when medically appropriate, consider Jevity 1.5 at 60 ml/hr (goal rate), Mauricio BID, Free Water Flush: 250 ml Q6h via GT Provides: 2320 kcal/day, 97 gm protein/day, and 2094 ml free water/day Meets: 99% of lower end of estimated caloric needs and 103% of upper end of estimated protein needs * Consider ST swallow eval to further assess safety of PO diet LP, MS, RD Please refer to Nutrition F/U for details.
[2022-05-30] MEDS ORDERED: MEPERIDINE 100 MG INJ. 100 MG/ML VIAL ONE (15:29)
[2022-05-30] MEDS ORDERED: MIDAZOLAM HCL 5 MG/5 ML VIAL ONE (15:29)
[2022-05-30] MEDS ORDERED: METOCLOPRAMIDE HCL 10 MG/2 ML VIAL ONE ×2 (15:40→15:57)
[2022-05-30 17:23] LABS: BASOPHILS % (AUTO) 0.4 % (0.0-2.0); HEMATOCRIT 22.2 % (36-54); LYMPHOCYTES # (AUTO) 0.5 K/uL (1.0-5.5); LYMPHOCYTES % (AUTO) 4.3 % (20.5-51.5); MEAN CORPUSCULAR VOLUME 89 fL (79.0-98.0); MONOCYTES # (AUTO) 0.3 K/uL (0.0-1.0); MONOCYTES % (AUTO) 3.2 % (1.7-9.3); NEUTROPHILS % (AUTO) 92.1 % (40.0-70.0); PLATELET COUNT (AUTO) 87 K/uL (130-430); RED CELL DISTRIBUTION WIDTH 13.7 % (9.0-15.0); WHITE BLOOD COUNT (AUTO) 10.8 K/uL (4.8-10.8)
[2022-05-31] VITALS (19 sets, daily range): BP systolic 109–143
[2022-05-31] MEDS: D5NS 1,000 ML IV SCH ×3 (02:24→21:12)
[2022-05-31] MEDS: ALBUTEROL SULFATE 0.083% 2.5 MG/3 ML VIAL.NEB INH SCH ×6 (03:25→23:58)
[2022-05-31 06:21] LABS: BASOPHILS % (AUTO) 0.1 % (0.0-2.0); HEMATOCRIT 22.7 % (36-54); LYMPHOCYTES # (AUTO) 0.3 K/uL (1.0-5.5); LYMPHOCYTES % (AUTO) 2.8 % (20.5-51.5); MEAN CORPUSCULAR VOLUME 88 fL (79.0-98.0); MONOCYTES # (AUTO) 0.3 K/uL (0.0-1.0); MONOCYTES % (AUTO) 2.6 % (1.7-9.3); NEUTROPHILS # (AUTO) 10.7 K/uL (1.8-7.7); NEUTROPHILS % (AUTO) 94.5 % (40.0-70.0); PLATELET COUNT (AUTO) 84 K/uL (130-430); RED BLOOD CELL COUNT(AUTO) 2.59 MIL/uL (4.2-6.2); RED CELL DISTRIBUTION WIDTH 13.5 % (9.0-15.0); WHITE BLOOD COUNT (AUTO) 11.3 K/uL (4.8-10.8)
[2022-05-31 06:50] LABS: ALBUMIN 1.5 g/dL (3.4-4.8); CALCIUM 7.1 mg/dL (8.4-11.0); CREATININE 1.15 mg/dL (0.55-1.30); TOTAL BILIRUBIN 0.5 mg/dL (0.0-1.0)
--- NOTE | 2022-05-31 08:00 | NUR ---
AM ASSESSMENT PT ALERT, DENIES BODY PAINS, GAUZE DRESSING ATTACHED TO GTUBE SITE REMOVED, NO BLEEDING. CLEANSED AREA WITH SALINE. PAT DRY. APPLIED SLIT GAUZE TO GTUBE SITE. PT SUCTIONS SELF USING YANKAUER, THICK SECRETIONS. ORAL MOISTURIZER PROVIDED. PT UNDERSTANDS ITS USE.
[2022-05-31] MEDS: TACROLIMUS ANHYDROUS 1 MG CAPSULE (PROGRAF) PO SCH ×2 (10:12→21:10)
[2022-05-31] MEDS: HYDROCORTISONE SOD SUCC 100 MG/2 ML VIAL IVP SCH ×2 (10:13→21:11)
[2022-05-31] MEDS: PANTOPRAZOLE SODIUM 40 MG/VIAL (PROTONIX) IVP SCH ×2 (10:13→21:11)
[2022-05-31] MEDS: METOPROLOL TARTRATE 25 MG TABLET PO SCH ×2 (10:14→21:11)
[2022-05-31] MEDS ORDERED: POTASSIUM CHLORIDE 20 MEQ TAB.PRT.SR GT ONE (10:15)
[2022-05-31] MEDS ORDERED: POTASSIUM CHLORIDE 20 MEQ/PKT PACKET GT ONE ×2 (10:15→11:30)
[2022-05-31] MEDS: FLUCONAZOLE 200 mg/ NS 100 ML IV SCH (11:38)
[2022-05-31] MEDS ORDERED: MAGNESIUM SULFATE 4 GM in D5W 250 ML IV ONE (13:00)
--- NOTE | 2022-05-31 13:00 | NUR ---
DIET CLEAR LIQUID TRAY SERVED. FAMILY AT BEDSIDE.
[2022-05-31] MEDS ORDERED: MAGNESIUM SULFATE IN WATER 100 ML IV ONE (13:15)
--- NOTE | 2022-05-31 16:00 | NUR ---
TELEMETRY DOWNGRADE PT AND HIS AWARE OF TRANSFER ORDER TO TELEMETRY DEPT.
--- NOTE | 2022-05-31 18:10 | NUR ---
TO [facility] TRANSFERRED PT VIA WHEELCHAIR, HANDOFF REPORT GIVEN TO GHASSAN POLK. ALL BELONGINGS REMOVED FROM ICU AND PLACED TO ASSIGNED ROOM 129-B
--- NOTE | 2022-05-31 18:15 | NUR ---
SBAR REPORT RECEIVED FROM FREDI FERRELL, ALL CARES ASSUMED.
--- NOTE | 2022-05-31 19:21 | NUR ---
SBAR REPORT GIVEN TO SHUN FERRELL, ALL CARES ENDORSED.
--- NOTE | 2022-05-31 21:05 | NUR ---
ID band Patient does not have hospital ID band; requested new ID and picked it up at front clerk.
--- NOTE | 2022-05-31 21:15 | NUR ---
Meds Scheduled meds given. Protonix & Solu-paul administered via patent PICC. Tablets administered via G-tube, tolerated. Anastasiapressor-reviewed side effects and he verbalized understanding.
--- NOTE | 2022-05-31 23:09 | NUR ---
BSC/ BM / dressing change Patient was assisted to BSC, had loose formed light brown BM. He was steady and denies getting SOB with activity. He was provided with CHG bath, new gown, bed bad. Sacral/coccyx dressing was changed; cleansed area with normal saline, pat dry and covered with foam dressing. Returned to bed, call light and suction yaunker w/in reach. VSS taken and stable, denies pain, no SOB.
[2022-05-31] MEDS: traZODone HCL 50 MG TABLET (DESYREL) PO PRN (23:43)
--- NOTE | 2022-05-31 23:55 | NUR ---
Desyrel Patient requesting Desyrel and administered via G-tube. Reviewed side effects and he verbalized understanding. No further needs.
[2022-06-01] VITALS: BP_SYST 131
[2022-06-01] MEDS: D5NS 1,000 ML IV SCH ×3 (02:15→18:10)
--- NOTE | 2022-06-01 02:31 | NUR ---
rounds, resting Patient resting w/eyes closed. Symmetrical rise and fall of chest, no distress noted. Safety precautions in place and call light w/in reach.
[2022-06-01] MEDS: ALBUTEROL SULFATE 0.083% 2.5 MG/3 ML VIAL.NEB INH SCH ×5 (03:59→20:35)
--- NOTE | 2022-06-01 04:22 | NUR ---
awake, education Patient is awake and asked questions regarding his G-tube, how does feeding work? etc. I explained that here in the hospital setting we have a feeding pump and feeding runs at set rate. He wanted more information regarding feeding tube care at home; he wants information he can read. I answered his questions and also provided him with a printout of exit-care regarding G-tube care at home.
--- NOTE | 2022-06-01 06:58 | NUR ---
closing note Patient resting in comfortable position, denies pain. IVF fluids emtpy and hung new bag. Infusing well via MIKKI PICC. Needs met throughout shift. Safety precautions in place. Will endorse care.
[2022-06-01 07:36] LABS: BASOPHILS % (AUTO) 0.1 % (0.0-2.0); EOSINOPHILS % (AUTO) 0.3 % (0.0-4.0); HEMATOCRIT 23.6 % (36-54); LYMPHOCYTES # (AUTO) 0.3 K/uL (1.0-5.5); LYMPHOCYTES % (AUTO) 3.4 % (20.5-51.5); MEAN CORPUSCULAR VOLUME 89 fL (79.0-98.0); MONOCYTES # (AUTO) 0.2 K/uL (0.0-1.0); MONOCYTES % (AUTO) 2.6 % (1.7-9.3); NEUTROPHILS # (AUTO) 8.6 K/uL (1.8-7.7); NEUTROPHILS % (AUTO) 93.6 % (40.0-70.0); PLATELET COUNT (AUTO) 84 K/uL (130-430); RED BLOOD CELL COUNT(AUTO) 2.67 MIL/uL (4.2-6.2); RED CELL DISTRIBUTION WIDTH 13.6 % (9.0-15.0); WHITE BLOOD COUNT (AUTO) 9.2 K/uL (4.8-10.8)
[2022-06-01 08:00] VITALS: BP_SYST 131
[2022-06-01 08:10] LABS: CALCIUM 7.5 mg/dL (8.4-11.0); CREATININE 0.98 mg/dL (0.55-1.30)
[2022-06-01] MEDS: PANTOPRAZOLE SODIUM 40 MG/VIAL (PROTONIX) IVP SCH ×2 (09:04→21:29)
[2022-06-01] MEDS: METOPROLOL TARTRATE 25 MG TABLET PO SCH ×2 (09:04→21:30)
[2022-06-01] MEDS: HYDROCORTISONE SOD SUCC 100 MG/2 ML VIAL IVP SCH ×2 (09:04→21:29)
[2022-06-01] MEDS: TACROLIMUS ANHYDROUS 1 MG CAPSULE (PROGRAF) PO SCH ×2 (09:04→21:31)
[2022-06-01 09:28] LABS: POTASSIUM 2.6 mmol/L (3.5-5.1)
[2022-06-01] MEDS ORDERED: MAGNESIUM SULFATE 50 ML IV ONE (11:00)
[2022-06-01] MEDS ORDERED: KCL 40 mEq in 100 mL (PREMIX) 100 ML IV ONE (11:15)
[2022-06-01 11:17] VITALS: BP_SYST 122
[2022-06-01] MEDS: FLUCONAZOLE 200 mg/ NS 100 ML IV SCH (11:26)
[2022-06-01 16:37] VITALS: BP_SYST 118
--- NOTE | 2022-06-01 17:28 | NUR ---
ST EVALUATION COMPLETED. ST TX NOT IDICATED AT THIS TIME. PT DEMONSTRATES DECREASED SWALLOW FUNCTION AND SAFETY. RECOMMEND NPO WITH ENTERAL FEEDING LEAST RESTRICTIVE MEANS OF NUTRITION. PT MAY HAVE ICE CHIPS PRN.
[2022-06-01 21:00] VITALS: BP_SYST 114
[2022-06-01] MEDS: traZODone HCL 50 MG TABLET (DESYREL) PO PRN (21:30)
[2022-06-02 01:00] VITALS: BP_SYST 125
--- NOTE | 2022-06-02 03:00 | NUR ---
Gastric Tube feeding & water flush on time & tolerating no acute distress / .
[2022-06-02] MEDS: D5NS 1,000 ML IV SCH (03:15)
[2022-06-02 08:00] VITALS: BP_SYST 133
[2022-06-02] MEDS: ALBUTEROL SULFATE 0.083% 2.5 MG/3 ML VIAL.NEB INH SCH ×3 (09:28→16:14)
[2022-06-02] MEDS: PANTOPRAZOLE SODIUM 40 MG/VIAL (PROTONIX) IVP SCH (09:49)
[2022-06-02] MEDS: HYDROCORTISONE SOD SUCC 100 MG/2 ML VIAL IVP SCH (09:49)
[2022-06-02] MEDS: FLUCONAZOLE 200 mg/ NS 100 ML IV SCH (09:50)
[2022-06-02] MEDS: TACROLIMUS ANHYDROUS 1 MG CAPSULE (PROGRAF) PO SCH (09:51)
[2022-06-02] MEDS: METOPROLOL TARTRATE 25 MG TABLET PO SCH (09:51)
--- NOTE | 2022-06-02 10:01 | NUR ---
EVALUATION COMPLETED. PATIENT WILL NEED A FWW FOR HOME IF HE DOES NOT ALREADY HAVE ONE. HE IS TO VERIFY WITH HIS SPOUSE. HE IS SAFE TO AMBULATE WITH NURSING SUPERVISION, WITH THE FWW. HE DOES NOT NEED FURTHER PHYSICAL THERAPY IN THIS SETTING. WOULD BENEFIT WITH HOME HEALTH PT.
[2022-06-02 12:00] VITALS: BP_SYST 122
[2022-06-02 13:47] LABS: BASOPHILS % (AUTO) 0.4 % (0.0-2.0); HEMATOCRIT 26.2 % (36-54); LYMPHOCYTES # (AUTO) 0.3 K/uL (1.0-5.5); LYMPHOCYTES % (AUTO) 3.3 % (20.5-51.5); MEAN CORPUSCULAR VOLUME 90 fL (79.0-98.0); MONOCYTES # (AUTO) 0.4 K/uL (0.0-1.0); MONOCYTES % (AUTO) 3.3 % (1.7-9.3); NEUTROPHILS # (AUTO) 9.8 K/uL (1.8-7.7); PLATELET COUNT (AUTO) 102 K/uL (130-430); RED BLOOD CELL COUNT(AUTO) 2.92 MIL/uL (4.2-6.2); RED CELL DISTRIBUTION WIDTH 13.4 % (9.0-15.0); WHITE BLOOD COUNT (AUTO) 10.6 K/uL (4.8-10.8)
[2022-06-02] MEDS ORDERED: GUAI-787 PO (14:50)
[2022-06-02 16:00] VITALS: BP_SYST 110
--- NOTE | 2022-06-02 16:26 | NUR ---
DIETARY RECOMMENDATIONS FOR TUBE FEEDING UPON DISCHARGE COPIED DIETARY RECOMMENDATION PROVIDED BY THE PARK MAINTENANCE TECHNICIAN TO PATIENT'S FAMILY FOLLOWS [phone] KCALS/DAY 94-117 G PROTEIN PER DAY 2.30-02.7 LITERS OF FLUID PER DAY JEVITY 1.2 8OZ(327 ML ) PER CARTON= 11 CARTONS PER DAY 3 CARTONS FOR BREAKFAST, 4 CARTONS FOR LUNCH AND 4 CARTONS FOR DINNER FREE WATER FLUSHES OF 150-200ML 3 TIMES PER DAY AFTER MEALS
[2022-06-02 16:40] VITALS: BP_SYST 134
--- NOTE | 2022-06-02 19:35 | NUR ---
Nutrition F/U RDN brief note: RDN met with the patient at bedside for a follow up nutrition assessment. Per patient, he is learning/ understanding how to correctly feed himself via bolus feeds through the GT and free water flushes. Patient reports that he is being d/c today, however he would like to take a Tube Feeding schedule and his nutrition recommendations home with him. RD provided the patient with an ICONIC "Guide to Adult Enteral Nutrition" PDF packet via e-mail as well as the following information: Nutrition Recommendations: 7256-7596 kcals/day (30-35 kcal/kg [place] Body Weight for weight gain promotion) 94-117 g protein/day (1.2-1.5 gm/kg [place] Body Weight to promote weight gain and reduce the risk of muscle loss) 2.3-2.7 liters of fluids/day (1 ml/kcal/day for maintenance) Tube Feeding Schedule: Jevity 1.2 8oz (237 mL) cartons -- 2500 kcal/day = ~11 cartons per day -- Suggested regimen 3 cartons for breakfast; 4 cartons for lunch; and 4 cartons for dinner -- Free water flushes 150-200 mL 3 times per day after meals CC, MPH, RDN
--- NOTE | 2022-06-02 19:47 | NUR ---
Dietitian Recommendations Tube Feeding Schedule: [facility] 1.2 8oz (237 mL) cartons -- 2500 kcal/day = ~11 cartons per day -- Suggested regimen 3 cartons for breakfast; 4 cartons for lunch; and 4 cartons for dinner -- Free water flushes 150-200 mL 3 times per day after meals Please refer to nutrition assessment for details, thanks! CC, MPH, RDN
[2022-06-04 10:06] LABS: TACROLIMUS (FK506) 7.9 ng/mL (2.0-20.0)
== END 2022-06-02 19:47 | disposition home health service (06) | DRG 871 ==
LOC: SED 12:55 → STU 18:32 → SIC 05-22 14:20 → SMU 05-27 18:59 → STU 05-27 20:57 → SIC 05-28 16:55 → STU 05-31 19:51
PROVIDERS: ADMIT Internal Medicine; ATTEND Internal Medicine
PROC: 5A09357 Assistance with Respiratory Ventilation, Less than 24 Consecutive Hours, Continuous Positive Airway Pressure (ICD-10-PCS; 2022-05-24)
PROC: 30233N1 Transfusion of Nonautologous Red Blood Cells into Peripheral Vein, Percutaneous Approach (ICD-10-PCS; 2022-05-28)
PROC: 0DH63UZ Insertion of Feeding Device into Stomach, Percutaneous Approach (ICD-10-PCS; principal; 2022-05-28 11:15)
PROC: 0DJ08ZZ Inspection of Upper Intestinal Tract, Via Natural or Artificial Opening Endoscopic (ICD-10-PCS; 2022-05-30)
DX: A41.9 Sepsis, unspecified organism (principal); J96.01 Acute respiratory failure with hypoxia; K26.4 Chronic or unspecified duodenal ulcer with hemorrhage; K29.81 Duodenitis with bleeding; K29.71 Gastritis, unspecified, with bleeding; N17.9 Acute kidney failure, unspecified; L03.221 Cellulitis of neck; D84.9 Immunodeficiency, unspecified; E87.1 Hypo-osmolality and hyponatremia; Z94.4 Liver transplant status; B37.89 Other sites of candidiasis; D04.4 Carcinoma in situ of skin of scalp and neck; D70.1 Agranulocytosis secondary to cancer chemotherapy; D09.8 Carcinoma in situ of other specified sites; E87.5 Hyperkalemia; R13.10 Dysphagia, unspecified; R50.81 Fever presenting with conditions classified elsewhere; T45.1X5A Adverse effect of antineoplastic and immunosuppressive drugs, initial encounter; K74.60 Unspecified cirrhosis of liver; Z20.822 Contact with and (suspected) exposure to COVID-19; C32.1 Malignant neoplasm of supraglottis; D69.6 Thrombocytopenia, unspecified; I10 Essential (primary) hypertension; J44.9 Chronic obstructive pulmonary disease, unspecified; Z88.0 Allergy status to penicillin; Z79.899 Other long term (current) drug therapy; Z85.21 Personal history of malignant neoplasm of larynx; Z85.89 Personal history of malignant neoplasm of other organs and systems; Z87.891 Personal history of nicotine dependence; Z92.21 Personal history of antineoplastic chemotherapy; Z95.0 Presence of cardiac pacemaker; Y92.89 Other specified places as the place of occurrence of the external cause; D70.9 Neutropenia, unspecified
CPT/HCPCS: 36415; 36600; 43235; 43246; 70490; 71045; 76376; 80048; 80053; 80197; 81000; 82140; 82272; 82803-TC; 82962; 83605; 83735; 83880; 84100; 84484; 85007; 85025; 85027; 85384; 85610-TC; 85730-TC; 86886; 86900; 86901; 86920; 87040; 87070-TC; 87081; 87086; 87205-TC; 87230-TC; 92610-GN; 93005; 93306; 94640; 94660; 94668; 94760; 96374; 99285; C9113; G0378; J0133; J0690; J0692; J1100; J1447; J1450; J1720; J1815; J1940; J2001; J2060; J2175; J2248; J2250; J2405; J2765; J3010; J3430; J3475; J7060; J7507; J7512; J7613; P9021; P9041

== ENCOUNTER 2022-06-06 15:13 | Inpatient (IN) | payer OTHER ==
[~2022-06-06] VITALS: Ht 180.3 cm; Wt 76.2 kg
[~2022-06-06 15:13] MED LIST changes: -FURO40TA5 PO; +GUAI-787 PO; +METO25TA3 PO; +PRED20TA PO; -SPIR100T5 PO; +TACR0.5C PO; -URSO300C24 PO
[2022-06-06 15:22] VITALS: BP_SYST 84
--- NOTE | 2022-06-06 15:45 | NUR ---
received in marimar dobbs from home for bleeding gt today and hypotensive on scene 80/40. dressing to gt site. + active moderate bleeding. denies pain, dizziness,n,v,d,fever, chills,sob. aao x4. resp even and nonlabored. abd soft, nontender, nondistended. bowel sounds present. hx afib, esophageal ca, copd. denies blood thinners
--- NOTE | 2022-06-06 15:50 | NUR ---
20 g piv left ac. ivf initiated. dr. berrios aware
[2022-06-06] MEDS ORDERED: NACL 0.9% 1,000 ML IV ONE ×2 (16:15→18:00)
[2022-06-06 16:24] LABS: BASOPHILS % (AUTO) 0.3 % (0.0-2.0); HEMATOCRIT 27.7 % (36-54); LYMPHOCYTES # (AUTO) 0.7 K/uL (1.0-5.5); LYMPHOCYTES % (AUTO) 7.1 % (20.5-51.5); MEAN CORPUSCULAR VOLUME 90 fL (79.0-98.0); MONOCYTES # (AUTO) 0.9 K/uL (0.0-1.0); MONOCYTES % (AUTO) 8.8 % (1.7-9.3); NEUTROPHILS # (AUTO) 8.4 K/uL (1.8-7.7); NEUTROPHILS % (AUTO) 83.8 % (40.0-70.0); PLATELET COUNT (AUTO) 107 K/uL (130-430); RED BLOOD CELL COUNT(AUTO) 3.07 MIL/uL (4.2-6.2); RED CELL DISTRIBUTION WIDTH 14.8 % (9.0-15.0)
--- NOTE | 2022-06-06 16:27 | NUR ---
surgicel applied to gt site per dr. berrios. no blood aspirated from tube
[2022-06-06] MEDS ORDERED: PANTOPRAZOLE SODIUM 40 MG/VIAL (PROTONIX) IVP ONE (17:30)
--- NOTE | 2022-06-06 18:20 | NUR ---
bp trending down 84/50. dr. berrios aware with order to 1 liter ns bolus. hgb pending. aao x4. resp even and nonlabored. @ bedside and given update
--- NOTE | 2022-06-06 18:33 | NUR ---
Pg. Dr. Ambrosio, for admission.
--- NOTE | 2022-06-06 18:40 | NUR ---
bp improved 93/20. ivf still running. 20g piv right ac inserted
--- NOTE | 2022-06-06 19:07 | NUR ---
RECEIVED REPORT FROM KIRSTEN FERRELL.
--- NOTE | 2022-06-06 19:07 | NUR ---
REPORT GIVEN TO BLAS FERRELL
[2022-06-06 19:11] LABS: INR 1.1 (0.80-1.20); PROTHROMBIN TIME 11.3 SECS (9.5-12.5)
--- NOTE | 2022-06-06 19:19 | NUR ---
REPORT GIVEN MELISSA FERRELL
--- NOTE | 2022-06-06 19:52 | NUR ---
Pgd. on the on-call for admission. HCP/OPTUM exchange
[2022-06-06] MEDS ORDERED: cefTRIAXone 1 GM IVPB PREMIX 50 ML IV ONE (20:00)
--- NOTE | 2022-06-06 20:13 | NUR ---
Jenna bahena in [facility] - 06/06/22 at 2034 by [id number] Endorsed pt Writen report to Heidi FERRELL
--- NOTE | 2022-06-06 20:34 | NUR ---
PT AND S.O SEEN BY DR WILSON AT BEDSIDE IN ER ROOM 7. VS STABLE
[2022-06-06 20:59] LABS: CALCIUM 7.2 mg/dL (8.4-11.0); CREATININE 1.08 mg/dL (0.55-1.30)
[2022-06-06 21:18] LABS: ALBUMIN 1.8 g/dL (3.4-4.8); TOTAL BILIRUBIN 1.3 mg/dL (0.0-1.0)
--- NOTE | 2022-06-06 21:58 | NUR ---
Admit bed requested Patient will be admitted to care of . Admitted to TELE unit. Diagnosis PEG TUBE BLEEDING Inpatient (Yes or No) NO Observation (Yes or No) YES Orientation concerns or request close to nursing station (Yes or No) NO Covid Status NEGATIVE On vent or bipap NO Isolation requirements NO Needs a sitter NO From Home (Yes or if No enter name of facility) YES Requires Dialysis (Yes or No) NO Med Rec Completed (Yes of No) PENDING
[2022-06-06] MEDS: D5/0.45 NS 1,000 ML IV SCH (22:00)
[2022-06-07] VITALS (18 sets, daily range): BP systolic 87–119
--- NOTE | 2022-06-07 00:05 | NUR ---
ADMISSION ADMIT NOTE Received pt from ER to the floor with a diagnosis of HEMATOMA, PEG TUBE BLEED. Pt arrived by marimar at 0008 to bed 122B, received report from ER nurse Mahi. Pt is currently waiting to receive 2 units of packed RBC. Pt is AOx4, on 2L oxygen via NC, very wet breath sounds, self suctioning secretions. Tele box 6 confirmed with tele monitor. Admission process initiated. Patient oriented to unit and safety precautions, bed low and armed, call light within reach.
--- NOTE | 2022-06-07 00:10 | NUR ---
Patient will be admitted to care of [facility]. Admitted to Tele unit. Will go to room 122 B. Belongings list completed. Complete and up to date summary report printed. SBAR report given to Cait at bedside with opportunity for questions.
[2022-06-07] MEDS ORDERED: cefTRIAXone 1 GM VIAL ONE (00:43)
[2022-06-07] MEDS ORDERED: LORazepam 2 MG/ML VIAL IVP PRN (04:45)
[2022-06-07] MEDS ORDERED: ONDANSETRON HCL 4 MG/2 ML VIAL IVP PRN (04:45)
--- NOTE | 2022-06-07 06:15 | NUR ---
GI CONSULT [facility] CALLED AT [phone] SPOKE WITH
--- NOTE | 2022-06-07 06:20 | NUR ---
PULMIOARY CONSULT CALLED [facility] [employer] CALLED AT [phone] SPOKE WITH JULIOCESAR.
[2022-06-07 09:31] LABS: BASOPHILS % (AUTO) 0.4 % (0.0-2.0); HEMATOCRIT 23.4 % (36-54); LYMPHOCYTES # (AUTO) 0.3 K/uL (1.0-5.5); LYMPHOCYTES % (AUTO) 3.4 % (20.5-51.5); MEAN CORPUSCULAR VOLUME 91 fL (79.0-98.0); MONOCYTES # (AUTO) 0.3 K/uL (0.0-1.0); MONOCYTES % (AUTO) 4.1 % (1.7-9.3); NEUTROPHILS # (AUTO) 7.7 K/uL (1.8-7.7); NEUTROPHILS % (AUTO) 92.1 % (40.0-70.0); PLATELET COUNT (AUTO) 84 K/uL (130-430); RED BLOOD CELL COUNT(AUTO) 2.58 MIL/uL (4.2-6.2); RED CELL DISTRIBUTION WIDTH 14.7 % (9.0-15.0); WHITE BLOOD COUNT (AUTO) 8.4 K/uL (4.8-10.8)
--- NOTE | 2022-06-07 09:58 | NUR ---
0800:Received pt in bed, awake& alert x4.Pt having productive cough - suctioned done. Dr. Ya (GI) at bedside and per MD, will do EGD today. Called lab and follow-up with regarding the blood and per Trinh, not available yet will call the unit once blood is ready. Angelica charge nurse aware
--- NOTE | 2022-06-07 10:13 | NUR ---
Pt transferred to ICU, report given to GHASSAN Romano. at bedside
--- NOTE | 2022-06-07 10:30 | NUR ---
Recd pt lethargic, at the bedside. placed pt on cardiac monitor technician. awaiting blood bank for prbc transfusion. blood not yet available. started ivf @ 75ml/hr. am labs still pending. continue to monitor pt closely. am assessment done and charted.
[2022-06-07] MEDS ORDERED: KCL 40 mEq in 100 mL (PREMIX) 100 ML IV ONE (10:45)
[2022-06-07 10:51] LABS: CREATININE 1.04 mg/dL (0.55-1.30)
[2022-06-07 10:54] LABS: ALBUMIN 1.4 g/dL (3.4-4.8); TOTAL BILIRUBIN 0.9 mg/dL (0.0-1.0)
[2022-06-07] MEDS ORDERED: LevALBUTEROL HCL 1.25 MG/0.5 ML *CONC.* VIAL.NEB (XOPENEX CONC.) INH ONE (11:00)
[2022-06-07] MEDS: POTASSIUM CHLORIDE 20 mEq in 100 mL (PREMIX) 100 ML x 2 doses IV SCH ×2 (11:08→13:35)
--- NOTE | 2022-06-07 11:30 | NUR ---
spoke to Dr Medrano, obtained order for stat 0 neg blood, but according to blood bank, blood still not available. obtained order for KCL 40 meq (yesterdays k=3.0 and not replaced), orders carried out.
--- NOTE | 2022-06-07 11:45 | NUR ---
Dr Saeed at the bedside, pt has labored breathing, obtained order for RT breathing treatment and humidified oxygen. will continue to monitor pt closely.
[2022-06-07] MEDS: D5/0.45 NS 1,000 ML IV SCH (12:11)
[2022-06-07] MEDS ORDERED: BUDESONIDE 0.5 MG/2 ML AMPUL.NEB INH ONE (12:15)
--- NOTE | 2022-06-07 12:30 | NUR ---
Obtained informed consent for EGD today, at the bedside and signed consent, aware of risks and benefits.
[2022-06-07] MEDS: LevALBUTEROL HCL 1.25 MG/0.5 ML *CONC.* VIAL.NEB (XOPENEX CONC.) INH SCH ×2 (15:00→23:00)
--- NOTE | 2022-06-07 16:00 | NUR ---
Called blood bank every hour but blood still not ready.
--- NOTE | 2022-06-07 17:00 | NUR ---
1ST UNIT OF PRBC STARTED PER MD ORDER. WILL monitor pt closely.
--- NOTE | 2022-06-07 18:00 | NUR ---
Pt more awake and alert, watching tv. changed gown, bloody soiled, skin around GT site washed and kept dry, old dried blood. all linen changed. VSS. no blood reaction noted. continue to monitor.
[2022-06-07] MEDS ORDERED: PANTOPRAZOLE SODIUM 40 MG/VIAL (PROTONIX) IVP SCH (18:30)
[2022-06-07] MEDS: BUDESONIDE 0.5 MG/2 ML AMPUL.NEB INH SCH (21:00)
[2022-06-07] MEDS: METHYLPREDNISOLONE SOD SUCC 40 MG/ML VIAL IVP SCH (22:17)
[2022-06-07] MEDS ORDERED: PIPERACILLIN/TAZOBACTAM 3.375 GM/VIAL (ZOSYN) IV ONE (22:47)
[2022-06-08] VITALS (21 sets, daily range): BP systolic 80–120
[2022-06-08] MEDS: D5/0.45 NS 1,000 ML IV SCH ×2 (00:40→14:00)
[2022-06-08] MEDS: PIPERACILLIN/TAZO 3.375/DEX-IS 50 ML IV SCH ×4 (06:41→18:11)
[2022-06-08] MEDS: METHYLPREDNISOLONE SOD SUCC 40 MG/ML VIAL IVP SCH (06:41)
[2022-06-08] MEDS ORDERED: SIMETHICONE 40 MG/0.6 ML ML ONE (07:47)
[2022-06-08] MEDS ORDERED: MEPERIDINE 100 MG INJ. 100 MG/ML VIAL ONE (07:48)
[2022-06-08] MEDS ORDERED: MIDAZOLAM HCL 5 MG/5 ML VIAL ONE (07:48)
[2022-06-08] MEDS ORDERED: BENZOCAINE 20% 0.5mL UD SPRAY MM ONE (07:54)
--- NOTE | 2022-06-08 07:55 | NUR ---
REPORT RECEIVED FROM LABORER YARD, ALL CARES ASSUMED. PT RESTING IN BED WITH EYES CLOSED. NASAL CANNULA IN PLACE AT 4LPM. VSS.
[2022-06-08 08:59] LABS: BASOPHILS % (AUTO) 0.1 % (0.0-2.0); LYMPHOCYTES # (AUTO) 0.2 K/uL (1.0-5.5); LYMPHOCYTES % (AUTO) 2.5 % (20.5-51.5); MEAN CORPUSCULAR VOLUME 89 fL (79.0-98.0); MONOCYTES # (AUTO) 0.3 K/uL (0.0-1.0); NEUTROPHILS # (AUTO) 7.5 K/uL (1.8-7.7); NEUTROPHILS % (AUTO) 93.4 % (40.0-70.0); PLATELET COUNT (AUTO) 89 K/uL (130-430); RED BLOOD CELL COUNT(AUTO) 2.28 MIL/uL (4.2-6.2); RED CELL DISTRIBUTION WIDTH 15.2 % (9.0-15.0)
[2022-06-08] MEDS ORDERED: TACROLIMUS ANHYDROUS 0.5 MG CAPSULE (PROGRAF) PO SCH (09:00)
[2022-06-08] MEDS: TACROLIMUS ANHYDROUS 1 MG CAPSULE (PROGRAF) PO SCH ×2 (09:00→21:58)
[2022-06-08] MEDS: METOPROLOL SUCCINATE 25 MG TAB.SR.24H (TOPROL XL) PO SCH (09:00)
[2022-06-08 09:31] LABS: CREATININE 1.42 mg/dL (0.55-1.30); PHOSPHORUS 4.3 mg/dL (2.7-4.5); POTASSIUM 4.4 mmol/L (3.5-5.1); TOTAL BILIRUBIN 1.9 mg/dL (0.0-1.0)
[2022-06-08 09:34] LABS: HEMATOCRIT 20.1 % (36-54)
--- NOTE | 2022-06-08 10:15 | NUR ---
EGD BY DR. PADGETT AT BEDSIDE. GI TEAM PRESENT. VERBAL ORDERS RECEIVED FROM DR. PADGETT FOR 2 UNITS PRBC.
[2022-06-08] MEDS ORDERED: EPINEPHrine JECT 0.1 MG/ML SYR ONE ×2 (10:19→12:27)
[2022-06-08] MEDS: predniSONE 20 MG TABLET PO SCH (11:00)
[2022-06-08 11:15] LABS: CALCIUM 7.1 mg/dL (8.4-11.0)
[2022-06-08] MEDS: OCTREOTIDE ACETATE 1,250 MCG in NS 248.75 ML IV SCH (11:15)
[2022-06-08] MEDS: BUDESONIDE 0.5 MG/2 ML AMPUL.NEB INH SCH ×2 (11:22→23:26)
[2022-06-08] MEDS: LevALBUTEROL HCL 1.25 MG/0.5 ML *CONC.* VIAL.NEB (XOPENEX CONC.) INH SCH ×3 (11:22→23:26)
--- NOTE | 2022-06-08 12:10 | NUR ---
1 UNIT PRBC STARTED AT 1153, VITAL SIGNS STABLE, NO SIGN OF TRANSFUSION REACTION NOTED AT THIS TIME.
[2022-06-08] MEDS: PANTOPRAZOLE SODIUM 40 MG in NS 50 ML IV SCH ×3 (13:12→21:59)
[2022-06-08] MEDS ORDERED: iohexoL 350 mgI/mL, 100 ML INFUS..BTL IV ONE (14:25)
--- NOTE | 2022-06-08 16:08 | NUR ---
Discharge order cancelled due to pt having procedure here.
[2022-06-08 19:27] LABS: HEMATOCRIT 23.4 % (36-54)
[2022-06-09] VITALS (17 sets, daily range): BP systolic 97–130
[2022-06-09 02:44] LABS: BASOPHILS % (AUTO) 0.1 % (0.0-2.0); HEMATOCRIT 23.7 % (36-54); LYMPHOCYTES # (AUTO) 0.2 K/uL (1.0-5.5); LYMPHOCYTES % (AUTO) 2.7 % (20.5-51.5); MEAN CORPUSCULAR VOLUME 90 fL (79.0-98.0); MONOCYTES # (AUTO) 0.4 K/uL (0.0-1.0); MONOCYTES % (AUTO) 6.4 % (1.7-9.3); NEUTROPHILS # (AUTO) 6.1 K/uL (1.8-7.7); NEUTROPHILS % (AUTO) 90.8 % (40.0-70.0); RED BLOOD CELL COUNT(AUTO) 2.63 MIL/uL (4.2-6.2); RED CELL DISTRIBUTION WIDTH 15.3 % (9.0-15.0); WHITE BLOOD COUNT (AUTO) 6.7 K/uL (4.8-10.8)
[2022-06-09] MEDS: PANTOPRAZOLE SODIUM 40 MG in NS 50 ML IV SCH ×5 (03:00→22:33)
[2022-06-09] MEDS: D5/0.45 NS 1,000 ML IV SCH ×2 (03:20→17:00)
[2022-06-09 03:47] LABS: INR 1.2 (0.80-1.20); PROTHROMBIN TIME 12.1 SECS (9.5-12.5)
[2022-06-09 04:57] LABS: PLATELET COUNT (AUTO) 73 K/uL (130-430)
[2022-06-09] MEDS: PIPERACILLIN/TAZO 3.375/DEX-IS 50 ML IV SCH ×5 (05:56→23:21)
--- NOTE | 2022-06-09 06:42 | NUR ---
Pt is A&O x 4 and denies any chest pain or SOB. Pt GTube site was not oozing out blood last night. pt GTube site wa cleaned ad a 4x4 was applied at the site of the GTube. pt has no pain at the site. Pt does have a GI bleed. Pt had a Lrg BM and it was very bloody. Pt vitals were stable with no signs of distress. Addendum: 06/09/22 at 0708 by Rubi Lemos RN RN Dr. Ambrosio was called two times but hasnt called back to get an update on the patient Addendum: 06/09/22 at 0717 by Rubi Lemos RN RN Dr Ambrosio called and was given an update about the patient.
[2022-06-09] MEDS: LevALBUTEROL HCL 1.25 MG/0.5 ML *CONC.* VIAL.NEB (XOPENEX CONC.) INH SCH ×2 (07:00→16:58)
--- NOTE | 2022-06-09 07:19 | NUR ---
SBAR REPORT RECEIVED FROM NIGHT RN, ALL CARES ASSUMED. PT RESTING IN BED. BED IN LOW AND LOCKED POSITION.
[2022-06-09] MEDS ORDERED: ONDANSETRON HCL 4 MG/2 ML VIAL IVP ONE (08:34)
[2022-06-09] MEDS ORDERED: SUCCINYLCHOLINE CHLORIDE 20 MG/ML(QUELICIN) IVP ONE (08:34)
[2022-06-09] MEDS ORDERED: FUROSEMIDE 20 MG/2 ML VIAL IVP ONE (08:34)
[2022-06-09] MEDS ORDERED: BUPIVACAINE /EPINEPHRINE/PF 0.25% 30 ML VIAL INJ ONE (08:34)
[2022-06-09] MEDS ORDERED: NS 1000 ML IV.SOLN IV ONE (08:34)
[2022-06-09] MEDS ORDERED: SEVOFLURANE 15 MIN GAS INH ONE (08:34)
[2022-06-09] MEDS ORDERED: NS IRRIG SOLN 1000 ML IR ONE (08:34)
[2022-06-09] MEDS ORDERED: ROCURONIUM BROMIDE 10 MG/ML (ZEMURON) IV ONE (08:34)
[2022-06-09] MEDS: METOPROLOL SUCCINATE 25 MG TAB.SR.24H (TOPROL XL) PO SCH (09:00)
[2022-06-09] MEDS: BUDESONIDE 0.5 MG/2 ML AMPUL.NEB INH SCH ×2 (09:00→21:00)
[2022-06-09] MEDS: TACROLIMUS ANHYDROUS 1 MG CAPSULE (PROGRAF) PO SCH ×2 (09:00→20:07)
[2022-06-09] MEDS: predniSONE 20 MG TABLET PO SCH (11:00)
[2022-06-09 11:12] LABS: HEMOGLOBIN 7.8 g/dL (14.0-18.0)
[2022-06-09 11:20] LABS: HEMOGLOBIN 8.1 g/dL (14.0-18.0)
[2022-06-09] MEDS ORDERED: PROPOFOL DRIP 100 ML IV ONE (12:03)
[2022-06-09] MEDS ORDERED: NACL 0.9% 1,000 ML IV SCH (12:30)
[2022-06-09] MEDS ORDERED: LABETALOL 100 MG/ 20ML VIAL IVP PRN (12:30)
[2022-06-09] MEDS ORDERED: hydrALAZINE HCL 20 MG/ML VIAL IVP PRN (12:30)
[2022-06-09] MEDS ORDERED: HYDROmorphone 1 MG/ML INJ. CARTRIDGE IVP PRN (12:30)
--- NOTE | 2022-06-09 12:50 | NUR ---
WEANING PARAMETERS : NIF = -30, RSBI = 19. PT IS ALERT AND COOPERATIVE.
--- NOTE | 2022-06-09 13:05 | NUR ---
EXTUBATED PT.. PLACED ON 3 LPM NC. HR 76, RR16, SPO2 = 98% B/P 119/70. NO RESP. DISTRESS NOTED.
[2022-06-09] MEDS: MORPHINE 4 MG INJ. 4 MG/ML VIAL IVP PRN ×2 (13:27→21:38)
[2022-06-09] MEDS: OCTREOTIDE ACETATE 1,250 MCG in NS 248.75 ML IV SCH (13:44)
[2022-06-09 17:41] LABS: BASOPHILS % (AUTO) 0.1 % (0.0-2.0); LYMPHOCYTES # (AUTO) 0.1 K/uL (1.0-5.5); LYMPHOCYTES % (AUTO) 1.9 % (20.5-51.5); MONOCYTES # (AUTO) 0.2 K/uL (0.0-1.0); WHITE BLOOD COUNT (AUTO) 5.5 K/uL (4.8-10.8)
[2022-06-09 17:58] LABS: ALBUMIN 1.1 g/dL (3.4-4.8); CREATININE 1.92 mg/dL (0.55-1.30); POTASSIUM 4.5 mmol/L (3.5-5.1); TOTAL BILIRUBIN 0.8 mg/dL (0.0-1.0)
[2022-06-09 17:59] LABS: INR 1.2 (0.80-1.20); PROTHROMBIN TIME 11.8 SECS (9.5-12.5)
[2022-06-09 18:06] LABS: CALCIUM 6.6 mg/dL (8.4-11.0); HEMATOCRIT 31.9 % (36-54); MEAN CORPUSCULAR VOLUME 90 fL (79.0-98.0); MONOCYTES % (AUTO) 3.4 % (1.7-9.3); NEUTROPHILS # (AUTO) 5.2 K/uL (1.8-7.7); NEUTROPHILS % (AUTO) 94.6 % (40.0-70.0); PLATELET COUNT (AUTO) 88 K/uL (130-430); RED BLOOD CELL COUNT(AUTO) 3.56 MIL/uL (4.2-6.2); RED CELL DISTRIBUTION WIDTH 14.7 % (9.0-15.0)
[2022-06-09] MEDS ORDERED: CALCIUM GLUCONATE 2 GM in NS 100 ML IV ONE (21:30)
[2022-06-09] MEDS ORDERED: CALCIUM GLUCONATE 1 GM/10 ML VIAL ONE (22:39)
[2022-06-10] VITALS (24 sets, daily range): BP systolic 110–129
[2022-06-10] MEDS: PANTOPRAZOLE SODIUM 40 MG in NS 50 ML IV SCH ×4 (03:07→21:35)
[2022-06-10] MEDS: LevALBUTEROL HCL 1.25 MG/0.5 ML *CONC.* VIAL.NEB (XOPENEX CONC.) INH SCH ×4 (03:14→23:03)
[2022-06-10] MEDS: PIPERACILLIN/TAZO 3.375/DEX-IS 50 ML IV SCH ×3 (05:59→18:03)
[2022-06-10 07:56] LABS: BASOPHILS % (AUTO) 0.1 % (0.0-2.0); HEMATOCRIT 28.4 % (36-54); LYMPHOCYTES # (AUTO) 0.1 K/uL (1.0-5.5); MEAN CORPUSCULAR VOLUME 89 fL (79.0-98.0); MONOCYTES # (AUTO) 0.2 K/uL (0.0-1.0); MONOCYTES % (AUTO) 5.3 % (1.7-9.3); NEUTROPHILS # (AUTO) 3.7 K/uL (1.8-7.7); NEUTROPHILS % (AUTO) 92.6 % (40.0-70.0); PLATELET COUNT (AUTO) 80 K/uL (130-430); RED BLOOD CELL COUNT(AUTO) 3.19 MIL/uL (4.2-6.2); RED CELL DISTRIBUTION WIDTH 14.7 % (9.0-15.0)
[2022-06-10 08:03] LABS: ALBUMIN 1.1 g/dL (3.4-4.8); CREATININE 1.78 mg/dL (0.55-1.30); POTASSIUM 4.7 mmol/L (3.5-5.1); TOTAL BILIRUBIN 0.5 mg/dL (0.0-1.0)
[2022-06-10] MEDS: TACROLIMUS ANHYDROUS 1 MG CAPSULE (PROGRAF) PO SCH ×2 (09:00→21:35)
[2022-06-10] MEDS: METOPROLOL SUCCINATE 25 MG TAB.SR.24H (TOPROL XL) PO SCH (09:00)
[2022-06-10] MEDS: D5/0.45 NS 1,000 ML IV SCH ×2 (09:38→21:43)
[2022-06-10 09:40] LABS: CALCIUM 6.8 mg/dL (8.4-11.0)
[2022-06-10] MEDS: predniSONE 5 MG TABLET PO SCH (09:40)
--- NOTE | 2022-06-10 10:13 | NUR ---
Informed Dr Post of K 2.9, with prescribed coverage of 40 meq Kdur. Addendum: 06/10/22 at 1017 by Negrito Lemos RN RN ERROR wrong documentation
[2022-06-10] MEDS ORDERED: CALCIUM GLUCONATE 1 GM/10 ML VIAL IVP ONE (10:45)
[2022-06-10] MEDS ORDERED: GLUCOSE (DEXTROSE) ORAL GEL -Adults PO PRN (11:00)
[2022-06-10] MEDS ORDERED: DEXTROSE 50%-WATER 50 ML DISP.SYRIN IVP PRN (11:00)
[2022-06-10] MEDS ORDERED: D5W 1,000 ML IV PRN (11:00)
[2022-06-10] MEDS ORDERED: CALCIUM GLUCONATE 2 GM in NS 100 ML IV ONE (11:00)
[2022-06-10] MEDS: OCTREOTIDE ACETATE 1,250 MCG in NS 248.75 ML IV SCH (12:15)
[2022-06-10] MEDS: INSULIN REGULAR, HUMAN 100 UNITS/ML, 3 ML VIAL (humuLIN R) SUBCUT PRN ×2 (12:17→18:03)
[2022-06-10] MEDS ORDERED: TACROLIMUS ANHYDROUS 1 MG CAPSULE (PROGRAF) PO ONE (12:30)
[2022-06-10] MEDS: BUDESONIDE 0.5 MG/2 ML AMPUL.NEB INH SCH ×2 (14:00→23:03)
--- NOTE | 2022-06-10 18:04 | NUR ---
pt critical labs given to Dr Ambrosio within [address] Montenegro contacted Dr Mills the surgeon to to discuss care and decided to discontinue NGT and melendez, Pt saturation well and taken off nasal canula, pt blood sugars were high and given q6 accu check to support blood sugars during steriod use. steriods were held per dr montenegro this morning and decreased per Dr soares this am. Pt not given insulin at end of shift as still NPO and not taking steriods today per pt request
--- NOTE | 2022-06-10 18:45 | NUR ---
Dietitian Recommendations * Initiate enteral nutrition if/when medically appropriate: Vital 1.5 @ 70mL x 24hr + free water flushes: 200mL q4h via GT - Provides daily: 2520 kcals, 113g protein, and 2489mL (1289mL from EN) - This equals 107% lower kcals, 97% upper protein, and 108% lower fluid estimated nutritional needs * Start TF @ 20mL and increase 10mL q 6-8h * Refeeding risk d/t NPO >4 days; monitor electrolytes and thiamine * Recommend daily MVI and 500mg VIT C via GT Please refer to nutritional assessment for details, thanks! CC, MPH, BRENDA Addendum: 06/11/22 at [address] Amended: Links added.
--- NOTE | 2022-06-10 19:30 | NUR ---
Pt report received. Pt AAOx4, O2 at 2 LPM/NC, even and non-labored respirations. MIKKI PICC with D5 1/2 NS at 100 mL/hr, Protonix drip at 10 mL/hr, and Sandostatin drip at 10 mL/hr. PIV LAC patent and secure. Dsg to abdomen clean, dry, intact. J/P drains x 2 secure with palomo red blood to both bulbs, no clotts noted to tubing. Pt able to make needs known, call bautista in reach, SR up x 2, able to use urinal. VSS, NAD, and no c/o pain or discomfort at this time.
[2022-06-10] MEDS: MORPHINE 4 MG INJ. 4 MG/ML VIAL IVP PRN (23:59)
[2022-06-11] VITALS (24 sets, daily range): BP systolic 114–155
[2022-06-11] MEDS: PIPERACILLIN/TAZO 3.375/DEX-IS 50 ML IV SCH ×4 (00:50→17:11)
[2022-06-11] MEDS: INSULIN REGULAR, HUMAN 100 UNITS/ML, 3 ML VIAL (humuLIN R) SUBCUT PRN ×3 (02:05→21:33)
[2022-06-11] MEDS: MORPHINE 4 MG INJ. 4 MG/ML VIAL IVP PRN ×3 (04:12→18:41)
[2022-06-11] MEDS: PANTOPRAZOLE SODIUM 40 MG in NS 50 ML IV SCH ×5 (06:46→21:30)
[2022-06-11] MEDS: D5/0.45 NS 1,000 ML IV SCH ×3 (06:47→21:38)
[2022-06-11 06:51] LABS: BASOPHILS % (AUTO) 0.1 % (0.0-2.0); HEMATOCRIT 27.5 % (36-54); LYMPHOCYTES # (AUTO) 0.2 K/uL (1.0-5.5); LYMPHOCYTES % (AUTO) 4.3 % (20.5-51.5); MONOCYTES # (AUTO) 0.2 K/uL (0.0-1.0); MONOCYTES % (AUTO) 5.2 % (1.7-9.3); NEUTROPHILS # (AUTO) 3.7 K/uL (1.8-7.7); NEUTROPHILS % (AUTO) 90.4 % (40.0-70.0); PLATELET COUNT (AUTO) 65 K/uL (130-430); RED BLOOD CELL COUNT(AUTO) 3.01 MIL/uL (4.2-6.2); RED CELL DISTRIBUTION WIDTH 15.1 % (9.0-15.0); WHITE BLOOD COUNT (AUTO) 4.1 K/uL (4.8-10.8)
[2022-06-11 07:05] LABS: ALANINE AMINOTRANSFERASE 8 U/L (12-78); ASPARTATE AMINOTRANSFERASE 14 U/L (10-37); CALCIUM 7.3 mg/dL (8.4-11.0); CHLORIDE 109 mmol/L (98-107); CREATININE 1.32 mg/dL (0.55-1.30); GLUCOSE 285 mg/dL (70-99); POTASSIUM 4.2 mmol/L (3.5-5.1); TOTAL BILIRUBIN 0.4 mg/dL (0.0-1.0); UREA NITROGEN, BLOOD 50 mg/dL (8-21)
[2022-06-11] MEDS: LevALBUTEROL HCL 1.25 MG/0.5 ML *CONC.* VIAL.NEB (XOPENEX CONC.) INH SCH ×2 (07:09→15:56)
--- NOTE | 2022-06-11 07:30 | NUR ---
Pt report given to GHASSAN Gomez. Pt resting quietly, NAD.
[2022-06-11 07:33] LABS: GFR AFRICAN AMERICAN 70 mL/min (>90)
[2022-06-11 07:34] LABS: ANION GAP < 3 (5-15)
[2022-06-11 07:53] LABS: MEAN CORPUSCULAR VOLUME 91 fL (79.0-98.0)
[2022-06-11] MEDS: predniSONE 5 MG TABLET PO SCH (09:00)
[2022-06-11] MEDS: METOPROLOL SUCCINATE 25 MG TAB.SR.24H (TOPROL XL) PO SCH (09:00)
[2022-06-11] MEDS: TACROLIMUS ANHYDROUS 1 MG CAPSULE (PROGRAF) PO SCH ×2 (09:00→21:31)
[2022-06-11] MEDS ORDERED: DEXTROSE 50% JECT 50 ML DISP.SYRIN IVP PRN (10:15)
[2022-06-11] MEDS ORDERED: *TPN PER PHARMACY XX PRN (10:15)
[2022-06-11] MEDS: OCTREOTIDE ACETATE 1,250 MCG in NS 248.75 ML IV SCH (11:13)
[2022-06-11 13:07] LABS: PHOSPHORUS 2.6 mg/dL (2.7-4.5)
--- NOTE | 2022-06-11 15:10 | NUR ---
Dietitian Recommendations * TPN D30%, AA8.5% at 100 ml/hr (goal rate), IL20% at 10 ml/hr daily via central line Provides; 2112 kcal/day, 102 gm protein/day, 2640 ml total volume/day, and GIR: 3.3 mg CHO/kg/min Meets: 90% of lower end of estimated caloric needs and 87% of upper end of estimated protein needs LP, MS, RD Please refer to Nutrition F/U for details.
--- NOTE | 2022-06-11 15:45 | NUR ---
PT HSAD X 1 LARGE LOOSE BURGUNDY STOOL, DR WILSON'S P.A. AT BEDSIDE AND EXPLAINED IT TO PT BUT PAGED DR WILSON AND PRIMARY MD //PT DENIES ABD PAIN/SOB//MW
[2022-06-11] MEDS: BUDESONIDE 0.5 MG/2 ML AMPUL.NEB INH SCH (16:06)
--- NOTE | 2022-06-11 17:00 | NUR ---
Nutrition F/U Admitting Diagnosis PEG tube bleeding Reviewed Pertinent Medical/Surgical Hx Medical Record Patient Significant Other Medical History Comment: per EMR: 62y male who presented to ED c/o bleeding from g tube. Recent admission to [facility] 05/21-06/02. Per RD initial assessment during previous visit - PMH: neck CA (Dx: ~4 mo ago per report), recent chemotherapy, liver transplant, and pacemaker per physician notes. 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 Patient had GT placed during last visit as a means of supplemental nutrition during chemo/radiation treatments. Patient is s/p CT abd/pelvis on 06/08. per MD notes: PMHx also includes CAD, DM, HTN, HLD, cirrhosis, dysphagia Subjective Information: TPN per pharmacy notification received 06/11/[address] attended ICU rounds this morning. Primary RN reported that pt remains NPO and awaiting plans for possible TPN. Pt was recently assessed by RD yesterday -- agree w/ plan for TPN as pt may need bowel rest at this time d/t recent GI Sx. Current Diet Order/Nutrition Support: NPO x5 days Patient/Significant Other Able To Verbalize Education Provided Not Indicated Pertinent Medications Reviewed Pertinent Labs Reviewed Height (Feet) 5 feet Height (Inches) 11.00 inches Weight (Pounds) 168 pounds -- stable since admission 06/07 Patient Weight 76.204 kg Body Mass Index 23.43 kg/m2 %IBW 97 [place]/Adjusted Body Weight 172lbs/ 78kg Recent Weight Change Yes - 69kg last admit; now 76kg = 7kg/15# wt gain x 10 days Weight Status Appropriate Gastrointestinal Symptoms Bleeding Last BM Jun 08, 2022 Difficulty With: Chewing Swallowing Food Allergies No Usual Diet At Home GT bolus feeds: Jevity 1.2 (237mL) cartons x 11/day + 150-200mL FWF TID Skin Integrity Comment: Theodore 15: Abdominal incision noted 06/10 BL foot +1 edema noted 06/07 Current % PO 0% - NPO Estimated Energy Expenditure (kcals/day) 3451-2428 (30-35 kcal/kg IBW for wt gain promotion) Estimated Protein Required (g/day) 94-117 (1.2-1.5 g/kg IBW for wt gain promotion, prevent loss of lean mass) Estimated Fluid Required (l/day) 2.3-2.7 (1mL/kcal for maintenance) Problem/Etiology/Signs/Symptoms *MODIFIED* * Inadequate oral intake r/t diet order a/e/b NPO x5 days. *Ongoing * Altered GI function r/t GT a/e/b bleeding at GT site requiring cauterization Sx. *Ongoing Expected Outcomes/Goals Nutrition initiated within 24h, nutrition proivides >85% estimated nutrient needs, slow wt gain desired within 1-2lbs per week, BM q1-3 days, skin integrity Dietitian Recommendations * TPN D30%, AA8.5% at 100 ml/hr (goal rate), IL20% at 10 ml/hr daily via central line Provides; 2112 kcal/day, 102 gm protein/day, 2640 ml total volume/day, and GIR: 3.3 mg CHO/kg/min Meets: 90% of lower end of estimated caloric needs and 87% of upper end of estimated protein needs Follow Up High Risk: F/U in 2-3 days
--- NOTE | 2022-06-11 20:33 | NUR ---
Patient Resting , on Nasal cannula 02 @ 1 LPM 02 SAT 92 % Respirations Regular symmetrical unlabored HOB elevated IVF infusing as ordered is Responsive to verbal stimuli & light touch SCD are in place / .
[2022-06-11] MEDS ORDERED: TPN CENTRAL IV SCH ×6 (21:00)
[2022-06-11] MEDS ORDERED: MVI IV SCH ×6 (21:00)
[2022-06-11] MEDS ORDERED: [UNRECOGNIZED DRUG - OTHER] IV SCH ×6 (21:00)
[2022-06-11] MEDS ORDERED: TRACE ELEMENTS IV SCH ×6 (21:00)
[2022-06-11] MEDS ORDERED: SODIUM CHLORIDE IV SCH ×6 (21:00)
--- NOTE | 2022-06-11 22:41 | NUR ---
TPN started and Running patient awake alert Family @ the bedside , medication feeding tolerating / . continue to monitor .
[2022-06-12] VITALS (24 sets, daily range): BP systolic 112–152
[2022-06-12] MEDS: PIPERACILLIN/TAZO 3.375/DEX-IS 50 ML IV SCH ×2 (00:40→06:32)
--- NOTE | 2022-06-12 00:53 | NUR ---
Large loose stool noted kept clean also dry as needed , position change also tolerated continue to monitor / .
--- NOTE | 2022-06-12 00:54 | NUR ---
Deep Breathing & Coughing done with pillow support for abdomen 02 SAT 93 - 04 %
[2022-06-12] MEDS: PANTOPRAZOLE SODIUM 40 MG in NS 50 ML IV SCH ×5 (04:28→21:16)
--- NOTE | 2022-06-12 04:46 | NUR ---
Patient able to self turn new linin applied kept clean also dry activity tolerated patient alert verbally indicative using urinal as needed & tolerates / .
[2022-06-12] MEDS: INSULIN REGULAR, HUMAN 100 UNITS/ML, 3 ML VIAL (humuLIN R) SUBCUT PRN ×3 (06:41→21:32)
[2022-06-12] MEDS: MORPHINE 4 MG INJ. 4 MG/ML VIAL IVP PRN ×2 (06:55→20:13)
--- NOTE | 2022-06-12 07:07 | NUR ---
MORPHINE 4 MG IVP GIVEN FOR ACUTE GENERAL PAIN / MONITOR .
[2022-06-12 07:21] LABS: EOSINOPHILS % (AUTO) 0.1 % (0.0-4.0); HEMATOCRIT 27.8 % (36-54); LYMPHOCYTES # (AUTO) 0.1 K/uL (1.0-5.5); LYMPHOCYTES % (AUTO) 2.9 % (20.5-51.5); MEAN CORPUSCULAR VOLUME 90 fL (79.0-98.0); MONOCYTES # (AUTO) 0.2 K/uL (0.0-1.0); NEUTROPHILS # (AUTO) 4.1 K/uL (1.8-7.7); PLATELET COUNT (AUTO) 52 K/uL (130-430); RED BLOOD CELL COUNT(AUTO) 3.08 MIL/uL (4.2-6.2); RED CELL DISTRIBUTION WIDTH 14.4 % (9.0-15.0); WHITE BLOOD COUNT (AUTO) 4.5 K/uL (4.8-10.8)
[2022-06-12 07:34] LABS: CREATININE 0.99 mg/dL (0.55-1.30); PHOSPHORUS 2.1 mg/dL (2.7-4.5); POTASSIUM 3.6 mmol/L (3.5-5.1); TOTAL BILIRUBIN 0.7 mg/dL (0.0-1.0)
[2022-06-12] MEDS: BUDESONIDE 0.5 MG/2 ML AMPUL.NEB INH SCH ×2 (07:35→23:27)
[2022-06-12] MEDS: LevALBUTEROL HCL 1.25 MG/0.5 ML *CONC.* VIAL.NEB (XOPENEX CONC.) INH SCH ×3 (07:35→23:27)
[2022-06-12 08:54] LABS: CALCIUM 6.7 mg/dL (8.4-11.0)
[2022-06-12] MEDS: FUROSEMIDE 40 MG/4 ML VIAL IVP SCH (10:05)
[2022-06-12] MEDS: METOPROLOL SUCCINATE 25 MG TAB.SR.24H (TOPROL XL) PO SCH (10:05)
[2022-06-12] MEDS: predniSONE 5 MG TABLET PO SCH (10:06)
[2022-06-12] MEDS: TACROLIMUS ANHYDROUS 1 MG CAPSULE (PROGRAF) PO SCH ×2 (10:06→21:17)
[2022-06-12] MEDS ORDERED: HEPARIN SODIUM,PORCINE 5,000 UNITS/ML VIAL SUBCUT ONE (11:30)
[2022-06-12] MEDS ORDERED: MAGNESIUM SULFATE 4 GM in D5W 250 ML IV ONE (12:30)
[2022-06-12] MEDS ORDERED: K PHOS 30 MM in NS 250 ML IV ONE (13:00)
[2022-06-12] MEDS: cefTRIAXone 1 GM in D5W 50 ML IV SCH (13:00)
[2022-06-12] MEDS: D5/0.45 NS 1,000 ML IV SCH (14:00)
[2022-06-12] MEDS: metroNIDAZOLE 500 mg/NS 100 ML IV SCH ×2 (14:15→21:18)
[2022-06-12] MEDS: OCTREOTIDE ACETATE 1,250 MCG in NS 248.75 ML IV SCH (14:20)
[2022-06-12] MEDS: HYDROmorphone 2 MG/ML VIAL IVP PRN (14:49)
--- NOTE | 2022-06-12 19:15 | NUR ---
change of shift.pt.presents challenges.pt.presents picc line location rt.bicept.intact.pt.presents labored breathing pattern. pt.receiving o2 therapy via nasal cannulae.rate:2l/min.o2-sat%=90.pt.receiving administration:tpn,iv-fluids,drips;sandostatin/protonix.pt.utilizing urinal w/in access of the pt.pt suction ing self.julio c,call light w/in access of the pt.
--- NOTE | 2022-06-12 20:00 | NUR ---
pt.assessed.v/s assessed values wnl.o2 sat%=90%.i have increased the o2 rate to 5l/min.o2 sat%=94%.pt.requested medication pain.picc line intact;patent.iv-fluids,tpn,drips;sandostatin,protonix infusing.pt.repositioned.call light placed w/in access of the pt.
--- NOTE | 2022-06-12 20:30 | NUR ---
blood glucose assessed value:192mg/dl.
[2022-06-12] MEDS ORDERED: [UNRECOGNIZED DRUG - OTHER] IV SCH ×9 (21:00)
[2022-06-12] MEDS ORDERED: SODIUM CHLORIDE IV SCH ×9 (21:00)
[2022-06-12] MEDS ORDERED: TRACE ELEMENTS IV SCH ×9 (21:00)
[2022-06-12] MEDS ORDERED: MVI IV SCH ×9 (21:00)
[2022-06-12] MEDS ORDERED: TPN CENTRAL IV SCH ×9 (21:00)
--- NOTE | 2022-06-12 21:00 | NUR ---
2100p medications administered.prograf administered.insulin;regular;2-u administered per sliding scale.call light,urinal w/in access of the pt.
[2022-06-12] MEDS: HEPARIN SODIUM,PORCINE 5,000 UNITS/ML VIAL SUBCUT SCH (21:33)
--- NOTE | 2022-06-12 22:00 | NUR ---
pt.assessed.v/s assessed values wnl.o2-sat%=93%.no c/o pain,nausea.pt.suctioning self.pt.repositioned.iv fluids/tpn, drips:sandostatin/protonix infusing.call light,urinal w/in access of the pt.
[2022-06-13] VITALS (25 sets, daily range): BP systolic 110–154
--- NOTE | 2022-06-13 | NUR ---
pt.assessed.v/s assessed values wnl.o2-sat%=93%.no c/o pain,nausea.pt.suctioning self.picc line intact.iv fluids,tpn/drips:sandostatin/protonix infusing.pt.repositioned.call light placed w/in access of the pt.
--- NOTE | 2022-06-13 02:00 | NUR ---
pt.assessed.v/s assessed values wnl.o2-sat%=90%.per flacc pain mgx pt.absent facial grimaces/body posturing.picc line intact iv fluids,tpn/drips;sandostatinu,ptrptoniox infoaning.pt./assesfor c;enlis.pteiond.call belkys ashraf[ce qwinacces sof thpt. Addendum: 06/13/22 at 0228 by Taco Churchill RN above note,2nd half,should read:iv fluids,tpn/drips;sandostain/protonix infusing.pt.assessed for cleanliness.pt.repositioned. call light placed w/in access of the pt.
--- NOTE | 2022-06-13 02:30 | NUR ---
i have collected the urine sample;cr/na+ sent to lab.
--- NOTE | 2022-06-13 04:00 | NUR ---
pt.assessed.v/s assessed values wnl.o2-sat%=98%.picc line intact;iv fluids/drips;sandostatin/protonix infusing.per flacc pain mgx pt.absent facial grimaces/body posturing.ptssefo ccn ies pteion ed.ryann/ pauline[doug win access of thpt/. Addendum: 06/13/22 at 0421 by Taco Churchill RN above note to read.pt.assessed for cleanliness.pt.repositioned.call light placed w/in access of the pt.
[2022-06-13] MEDS: PANTOPRAZOLE SODIUM 40 MG in NS 50 ML IV SCH ×5 (05:07→22:00)
[2022-06-13] MEDS: metroNIDAZOLE 500 mg/NS 100 ML IV SCH ×3 (05:08→15:26)
[2022-06-13] MEDS: D5/0.45 NS 1,000 ML IV SCH ×2 (05:09→20:39)
[2022-06-13] MEDS ORDERED: GASTROGRAFIN 120 ML ONE (05:18)
[2022-06-13] MEDS: INSULIN REGULAR, HUMAN 100 UNITS/ML, 3 ML VIAL (humuLIN R) SUBCUT PRN ×3 (05:49→21:22)
[2022-06-13 07:24] LABS: BASOPHILS % (AUTO) 0.2 % (0.0-2.0); EOSINOPHILS % (AUTO) 0.5 % (0.0-4.0); HEMATOCRIT 32.3 % (36-54); LYMPHOCYTES # (AUTO) 0.2 K/uL (1.0-5.5); LYMPHOCYTES % (AUTO) 3.3 % (20.5-51.5); MEAN CORPUSCULAR VOLUME 91 fL (79.0-98.0); MONOCYTES # (AUTO) 0.3 K/uL (0.0-1.0); MONOCYTES % (AUTO) 5.3 % (1.7-9.3); NEUTROPHILS % (AUTO) 90.7 % (40.0-70.0); PLATELET COUNT (AUTO) 53 K/uL (130-430); RED BLOOD CELL COUNT(AUTO) 3.57 MIL/uL (4.2-6.2); RED CELL DISTRIBUTION WIDTH 14.4 % (9.0-15.0); WHITE BLOOD COUNT (AUTO) 5.5 K/uL (4.8-10.8)
[2022-06-13] MEDS: LevALBUTEROL HCL 1.25 MG/0.5 ML *CONC.* VIAL.NEB (XOPENEX CONC.) INH SCH ×3 (07:53→23:31)
[2022-06-13 08:21] LABS: ALBUMIN 1.2 g/dL (3.4-4.8); CALCIUM 7.2 mg/dL (8.4-11.0); CREATININE 0.8 mg/dL (0.55-1.30); PHOSPHORUS 2.5 mg/dL (2.7-4.5); POTASSIUM 3.4 mmol/L (3.5-5.1); TOTAL BILIRUBIN 0.5 mg/dL (0.0-1.0)
[2022-06-13] MEDS: HEPARIN SODIUM,PORCINE 5,000 UNITS/ML VIAL SUBCUT SCH ×3 (09:00→20:42)
[2022-06-13 09:30] LABS: INR 1.1 (0.80-1.20); PROTHROMBIN TIME 11.5 SECS (9.5-12.5)
[2022-06-13] MEDS: BUDESONIDE 0.5 MG/2 ML AMPUL.NEB INH SCH ×2 (09:37→23:31)
[2022-06-13] MEDS: LACTOBACILLUS RHAMNOSUS GG 1 CAP CAPSULE PO SCH (10:15)
[2022-06-13] MEDS: METOPROLOL SUCCINATE 25 MG TAB.SR.24H (TOPROL XL) PO SCH (10:16)
[2022-06-13] MEDS: TACROLIMUS ANHYDROUS 1 MG CAPSULE (PROGRAF) PO SCH ×2 (10:17→20:11)
[2022-06-13] MEDS: FUROSEMIDE 40 MG/4 ML VIAL IVP SCH (10:20)
[2022-06-13] MEDS: predniSONE 5 MG TABLET PO SCH (10:26)
[2022-06-13] MEDS: KCL 20 mEq in 100 mL (PREMIX) 100 ML IV SCH ×2 (10:27→12:11)
--- NOTE | 2022-06-13 11:20 | NUR ---
DR. Ponce WAS INFORMED ABOUT LIGHT BURGUNDY STOOL AND LOW PLATELETS AND ORDERED TO HOLD THE INSUL;IN FOR 12 NOON , ACUCHECK -156 AND STILL npo
[2022-06-13] MEDS: HYDROmorphone 2 MG/ML VIAL IVP PRN ×6 (11:27→21:57)
[2022-06-13] MEDS: OCTREOTIDE ACETATE 1,250 MCG in NS 248.75 ML IV SCH (12:16)
[2022-06-13] MEDS: cefTRIAXone 1 GM in D5W 50 ML IV SCH (13:25)
[2022-06-13 15:26] LABS: URINE SODIUM, RANDOM 73 mmol/L (40-220)
[2022-06-13] MEDS: FAT EMULSIONS 250 ML IV SCH (20:41)
[2022-06-13] MEDS ORDERED: SODIUM CHLORIDE IV SCH ×9 (21:00)
[2022-06-13] MEDS ORDERED: [UNRECOGNIZED DRUG - OTHER] IV SCH ×9 (21:00)
[2022-06-13] MEDS ORDERED: TPN CENTRAL IV SCH ×9 (21:00)
[2022-06-13] MEDS ORDERED: POTASSIUM CHLORIDE IV SCH ×9 (21:00)
[2022-06-14] VITALS (24 sets, daily range): BP systolic 99–140
[2022-06-14] MEDS: HYDROmorphone 2 MG/ML VIAL IVP PRN ×3 (02:33→16:50)
[2022-06-14] MEDS: PANTOPRAZOLE SODIUM 40 MG in NS 50 ML IV SCH ×5 (03:00→23:11)
[2022-06-14] MEDS: HEPARIN SODIUM,PORCINE 5,000 UNITS/ML VIAL SUBCUT SCH ×3 (06:25→22:22)
[2022-06-14] MEDS: metroNIDAZOLE 500 mg/NS 100 ML IV SCH ×3 (06:26→22:00)
[2022-06-14] MEDS: INSULIN REGULAR, HUMAN 100 UNITS/ML, 3 ML VIAL (humuLIN R) SUBCUT PRN ×4 (06:40→22:35)
[2022-06-14 07:19] LABS: BASOPHILS % (AUTO) 0.2 % (0.0-2.0); EOSINOPHILS % (AUTO) 0.6 % (0.0-4.0); HEMATOCRIT 31.6 % (36-54); LYMPHOCYTES # (AUTO) 0.2 K/uL (1.0-5.5); LYMPHOCYTES % (AUTO) 4.3 % (20.5-51.5); MEAN CORPUSCULAR VOLUME 91 fL (79.0-98.0); MONOCYTES # (AUTO) 0.3 K/uL (0.0-1.0); MONOCYTES % (AUTO) 6.2 % (1.7-9.3); NEUTROPHILS # (AUTO) 4.7 K/uL (1.8-7.7); NEUTROPHILS % (AUTO) 88.7 % (40.0-70.0); PLATELET COUNT (AUTO) 64 K/uL (130-430); RED BLOOD CELL COUNT(AUTO) 3.49 MIL/uL (4.2-6.2); RED CELL DISTRIBUTION WIDTH 14.2 % (9.0-15.0); WHITE BLOOD COUNT (AUTO) 5.3 K/uL (4.8-10.8)
[2022-06-14 07:37] LABS: CREATININE 0.9 mg/dL (0.55-1.30); POTASSIUM 3.5 mmol/L (3.5-5.1)
[2022-06-14 07:43] LABS: ALBUMIN 1.2 g/dL (3.4-4.8); PHOSPHORUS 2.2 mg/dL (2.7-4.5); TOTAL BILIRUBIN 0.4 mg/dL (0.0-1.0)
[2022-06-14] MEDS: BUDESONIDE 0.5 MG/2 ML AMPUL.NEB INH SCH (07:47)
[2022-06-14] MEDS: LevALBUTEROL HCL 1.25 MG/0.5 ML *CONC.* VIAL.NEB (XOPENEX CONC.) INH SCH ×2 (07:47→15:43)
--- NOTE | 2022-06-14 07:47 | NUR ---
RT NOTE: 0747 Decreased FiO2 to 50% post tx. SpO2 between 95-97%. Will continue to titrate as tolerated by patient. Addendum: 06/14/22 at 0821 by Morena Mckenna RT Amended: Links added.
--- NOTE | 2022-06-14 08:00 | NUR ---
Recieved patient sleepy but easily arousable to verbal stimulus, A&O x3. Denies chest pain and SOB. SR on the monitor. High flow oxygen and patient O2 stats 97%. HOB at 30 degrees. GT at 10 cc/hr. PICC line with TPN at 51 cc/hr and lipids at 10 cc/hr per MD order. Patient also on Sandostatin drip at 10 cc/hr and Protonix drip at 10 cc/hr. No signs of bleeding noted. Patient seems comfortable. All needs anticipated and met. AM assessment done and charted. Will continue to monitor patient closely.
[2022-06-14] MEDS: predniSONE 5 MG TABLET PO SCH (09:32)
[2022-06-14] MEDS: METOPROLOL SUCCINATE 25 MG TAB.SR.24H (TOPROL XL) PO SCH (09:32)
[2022-06-14] MEDS: LACTOBACILLUS RHAMNOSUS GG 1 CAP CAPSULE PO SCH (09:32)
[2022-06-14] MEDS: TACROLIMUS ANHYDROUS 1 MG CAPSULE (PROGRAF) PO SCH ×2 (09:33→22:23)
[2022-06-14] MEDS: FUROSEMIDE 40 MG/4 ML VIAL IVP SCH (09:34)
--- NOTE | 2022-06-14 10:00 | NUR ---
Patient had large BM brown, no blood noted. Patient changed and skin kept clean and dry. at the bedside and updated on patient's current condition. Continue to monitor patient closely.
--- NOTE | 2022-06-14 13:00 | NUR ---
Dr Rodriguez at the bedside, assessing pt and reviewed labs. obtained order for swallow eval and am chest xray.
--- NOTE | 2022-06-14 13:35 | NUR ---
Nutrition F/U Admitting Diagnosis PEG tube bleeding Reviewed Pertinent Medical/Surgical Hx Medical Record Primary RN Patient Medical History Comment: per EMR: 62y male who presented to ED c/o bleeding from g tube. Recent admission to [facility] 05/21-06/02. Per RD initial assessment during previous visit - PMH: neck CA (Dx: ~4 mo ago per report), recent chemotherapy, liver transplant, and pacemaker per physician notes. 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 Patient had GT placed during last visit as a means of supplemental nutrition during chemo/radiation treatments. Patient is s/p CT abd/pelvis on 06/08. per MD notes: PMHx also includes CAD, DM, HTN, HLD, cirrhosis, dysphagia Subjective Information: RD rounded to ICU this afternoon and spoke w/ pt's primary RN. She reported that Dr. Ambrosio inquired about increasing TF rate/RD recs -- currently infusing Jevity 1.2 at 10 ml/hr. RN reported pt has been tolerating TF well without difficulties as well as receiving TPN per pharmacy. RD visited pt at bedside; seen sleeping soundly. Witnessed TF infusing as per physician order; TPN hung and infusing per pharmacy as well. Bedscale wt taken: 163# -- 5# wt change compared to admission wt of 168#. Per EMR review, pt has been tolerating TPN/TF/no active bleeding through the PEG; BM x3 06/12; abd is non-distended w/ active bowel sounds; on 30 L O2 via HFNC; GRV: 5 ml 06/14. Pt would benefit from diabetic-friendly TF formula modification and gradually increasing TF to optimize glycemic control and nutritional status. Current Diet Order/Nutrition Support: Jevity 1.2 at 10 ml/hr, Free Water Flush: 150 Q6 via NGT x1 day Pertinent Meds: culturelle, lasix, SSI, prednisone, morphine, dilaudid Pertinent Labs: Na 132 L, BUN 23 H, BG 277 H, POC BG 259 H, Ca 7 L, Phos 2.2 L, Mg 1 L, ALB 1.2 L Height (Feet) 5 feet Height (Inches) 11.00 inches Weight (Pounds) 168 pounds -- stable since admission 9/25 Patient Weight 76.204 kg Body Mass Index 23.43 kg/m2 %IBW 97 [place]/Adjusted Body Weight 172lbs/78kg Recent Weight Change Yes - 69kg last admit; now 76kg = 7kg/15# wt gain x10 days Weight Status Appropriate Difficulty With: Chewing Swallowing Food Allergies No Usual Diet At Home GT bolus feeds: Jevity 1.2 (237mL) cartons x 11/day + 150-200mL FWF TID Skin Integrity Comment: Theodore scale: 15; Sx abd incision and NEAL drain; bilat ankle 1+ non-pitting edema and bilat foot w/ 2+ pitting edema per EMR BL foot +1 edema noted 06/07 Current % PO 0% - NPO Estimated Energy Expenditure (kcals/day) 9290-6966 (30-35 kcal/kg IBW for wt gain promotion, CA) Estimated Protein Required (g/day) 94-117 (1.2-1.5 g/kg IBW for wt gain promotion, prevent loss of lean mass, CA) Estimated Fluid Required (l/day) 2.3-2.7 (1mL/kcal for maintenance) Problem/Etiology/Signs/Symptoms *MODIFIED* * Inadequate oral intake r/t diet order a/e/b NPO x5 days. *Ongoing * Altered GI function r/t GT a/e/b bleeding at GT site requiring cauterization Sx. *Ongoing Expected Outcomes/Goals Nutrition initiated within 24h, nutrition provides >85% estimated nutrient needs, slow wt gain desired within 1-2lbs per week, BM q1-3 days, skin integrity Dietitian Recommendations * Continuous EN support: Glucerna 1.5 55 ml/hr (goal rate), Mauricio BID, Free Water Flush: 250 ml Q6h via GT Provides: 2140 kcal/day, 114 gm protein/day, and 2002 ml free water/day Meets: 91% of lower end of estimated caloric needs, 97% of upper end of estimated protein needs, and 87% of lower end of estimated fluid needs * If bolus feeding preferred, Glucerna 1.5 -- 1 carton (237 ml) Q4h, Mauricio BID, Free Water Flush: 250 ml Q6h via GT Provides: 2293 kcal/day, 123 gm protein/day, 2079 ml free water/day Meets: 98% of lower end of estimated caloric needs, 105% of lower end of estimated protein needs, and 90% of lower end of estimated fluid needs * TPN D30%, AA8.5% at 100 ml/hr (goal rate), IL20% at 10 ml/hr daily via central line until pt tolerates/meets EN goal rate Provides: 2112 kcal/day, 102 gm protein/day, 2640 ml total volume/day, and GIR: 3.3 mg CHO/kg/min Meets: 90% of lower end of estimated caloric needs and 87% of upper end of estimated protein needs Follow Up High Risk: F/U in 2-3 days Addendum: 06/14/22 at [address] CORRECTION: Current Diet Order/Nutrition Support: Jevity 1.2 at 10 ml/hr, Free Water Flush: 150 Q6 via NGT x1 day & TPN D30%, AA8.5% at 51.877 ml/hr, IL20% at 10 ml/hr via central line TPN yields: 1584 kcal/day, 64 gm protein/day, 2234 ml total volume/day, and GIR: 1.6 mg CHO/kg/min TPN meets: 68% of lower end of estimated caloric needs and 68% of lower end of estimated protein needs
--- NOTE | 2022-06-14 13:45 | NUR ---
Dietitian Recommendations * Continuous EN support: Glucerna 1.5 55 ml/hr (goal rate), Mauricio BID, Free Water Flush: 250 ml Q6h via GT Provides: 2140 kcal/day, 114 gm protein/day, and 2002 ml free water/day Meets: 91% of lower end of estimated caloric needs, 97% of upper end of estimated protein needs, and 87% of lower end of estimated fluid needs * If bolus feeding preferred, Glucerna 1.5 -- 1 carton (237 ml) Q4h, Mauricio BID, Free Water Flush: 250 ml Q6h via GT Provides: 2293 kcal/day, 123 gm protein/day, 2079 ml free water/day Meets: 98% of lower end of estimated caloric needs, 105% of lower end of estimated protein needs, and 90% of lower end of estimated fluid needs * TPN D30%, AA8.5% at 100 ml/hr (goal rate), IL20% at 10 ml/hr daily via central line until pt tolerates/meets EN goal rate Provides: 2112 kcal/day, 102 gm protein/day, 2640 ml total volume/day, and GIR: 3.3 mg CHO/kg/min Meets: 90% of lower end of estimated caloric needs and 87% of upper end of estimated protein needs LP, MS, RD Please refer to Nutrition F/U for details.
[2022-06-14] MEDS: cefTRIAXone 1 GM in D5W 50 ML IV SCH (13:46)
--- NOTE | 2022-06-14 18:00 | NUR ---
started glucerna 1.5 @25ml/hr, will endorse to next shift.
--- NOTE | 2022-06-14 19:01 | NUR ---
RECEIVED REPORT FROM ALEXANDRA FERRELL PATIENT RESTING IN BED NO COMPLAINTS OR SIGNS OF DISTRESS ON HI-FLOW 25L 40% OXYGEN SATURATION 97% AT BEDSIDE. TUBE FEEDING GLUCERNA @ 25ML TO BE INCREASED BY 10ML AT 0600. WILL CONTINUE TO MONITOR.
[2022-06-14] MEDS: OCTREOTIDE ACETATE 1,250 MCG in NS 248.75 ML IV SCH (19:38)
[2022-06-14] MEDS ORDERED: TPN CENTRAL 0.0001 ML, SODIUM CHLORIDE 60 MEQ, POTASSIUM CHLORIDE 20 MEQ, K PHOS 15 MM,... IV SCH ×11 (21:00)
[2022-06-14] MEDS: D5/0.45 NS 1,000 ML IV SCH (21:17)
[2022-06-14] MEDS: FAT EMULSIONS 250 ML IV SCH (21:17)
[2022-06-14] MEDS: MORPHINE 4 MG INJ. 4 MG/ML VIAL IVP PRN (21:19)
[2022-06-15] VITALS (24 sets, daily range): BP systolic 92–137
[2022-06-15] MEDS: BUDESONIDE 0.5 MG/2 ML AMPUL.NEB INH SCH ×3 (00:06→21:44)
[2022-06-15] MEDS: LevALBUTEROL HCL 1.25 MG/0.5 ML *CONC.* VIAL.NEB (XOPENEX CONC.) INH SCH ×4 (00:06→23:29)
[2022-06-15] MEDS: PANTOPRAZOLE SODIUM 40 MG in NS 50 ML IV SCH (04:00)
[2022-06-15] MEDS: metroNIDAZOLE 500 mg/NS 100 ML IV SCH ×3 (07:00→21:37)
[2022-06-15] MEDS: HEPARIN SODIUM,PORCINE 5,000 UNITS/ML VIAL SUBCUT SCH (07:01)
[2022-06-15 07:10] LABS: BASOPHILS % (AUTO) 0.3 % (0.0-2.0); EOSINOPHILS % (AUTO) 0.6 % (0.0-4.0); HEMATOCRIT 33.3 % (36-54); LYMPHOCYTES # (AUTO) 0.2 K/uL (1.0-5.5); LYMPHOCYTES % (AUTO) 4.2 % (20.5-51.5); MEAN CORPUSCULAR VOLUME 91 fL (79.0-98.0); MONOCYTES # (AUTO) 0.5 K/uL (0.0-1.0); MONOCYTES % (AUTO) 8.3 % (1.7-9.3); NEUTROPHILS # (AUTO) 4.8 K/uL (1.8-7.7); NEUTROPHILS % (AUTO) 86.6 % (40.0-70.0); PLATELET COUNT (AUTO) 93 K/uL (130-430); RED BLOOD CELL COUNT(AUTO) 3.67 MIL/uL (4.2-6.2); RED CELL DISTRIBUTION WIDTH 14.6 % (9.0-15.0); WHITE BLOOD COUNT (AUTO) 5.5 K/uL (4.8-10.8)
[2022-06-15 08:47] LABS: ALBUMIN 1.2 g/dL (3.4-4.8); CALCIUM 7.2 mg/dL (8.4-11.0); CREATININE 0.89 mg/dL (0.55-1.30); PHOSPHORUS 2.8 mg/dL (2.7-4.5); POTASSIUM 3.6 mmol/L (3.5-5.1); TOTAL BILIRUBIN 0.4 mg/dL (0.0-1.0)
[2022-06-15] MEDS: LACTOBACILLUS RHAMNOSUS GG 1 CAP CAPSULE PO SCH (09:01)
[2022-06-15] MEDS: FUROSEMIDE 40 MG/4 ML VIAL IVP SCH (09:01)
[2022-06-15] MEDS: PANTOPRAZOLE SODIUM 40 MG/VIAL (PROTONIX) IVP SCH (09:01)
[2022-06-15] MEDS: TACROLIMUS ANHYDROUS 1 MG CAPSULE (PROGRAF) PO SCH ×2 (09:02→21:37)
[2022-06-15] MEDS: predniSONE 5 MG TABLET PO SCH (09:02)
[2022-06-15] MEDS: METOPROLOL SUCCINATE 25 MG TAB.SR.24H (TOPROL XL) PO SCH (09:03)
[2022-06-15] MEDS ORDERED: *LOVENOX 1MG/KG Q12H/PHARMACY XX ONE (11:00)
[2022-06-15] MEDS: MORPHINE 4 MG INJ. 4 MG/ML VIAL IVP PRN ×3 (11:20→18:43)
[2022-06-15] MEDS: INSULIN REGULAR, HUMAN 100 UNITS/ML, 3 ML VIAL (humuLIN R) SUBCUT PRN ×3 (11:22→22:58)
[2022-06-15] MEDS: cefTRIAXone 1 GM in D5W 50 ML IV SCH (13:24)
--- NOTE | 2022-06-15 15:01 | NUR ---
RT NOTES 1501 TITRATED FLOW TO 25L AND FIO2 TO 40%, PT SATURATING 96%. NO WOB/SOB NOTED. WILL CONT TO MONITOR PT.
--- NOTE | 2022-06-15 16:14 | NUR ---
ST EVALUATION COMPLETED. ST TX NOT INDICATED. PT DEMONSTRATES DECREASED SWALLOW FUNCTION AND SAFETY. RECOMMEND CONTINUED NPO WITH ENTERAL FEEDING LEAST RESTRICTIVE MEANS OF NUTRITION.
[2022-06-15] MEDS ORDERED: POTASSIUM CHLORIDE IV SCH ×10 (21:00)
[2022-06-15] MEDS ORDERED: [UNRECOGNIZED DRUG - OTHER] IV SCH ×10 (21:00)
[2022-06-15] MEDS ORDERED: SODIUM CHLORIDE IV SCH ×10 (21:00)
[2022-06-15] MEDS ORDERED: TPN CENTRAL IV SCH ×10 (21:00)
[2022-06-15] MEDS: ENOXAPARIN SODIUM 80 MG/0.8 ML SYRINGE SUBCUT SCH (21:36)
[2022-06-15] MEDS: guaiFENesin 200 MG/10 ML UDC GT SCH ×2 (21:37→23:00)
[2022-06-15] MEDS: FAT EMULSIONS 250 ML IV SCH (21:50)
[2022-06-15] MEDS: D5/0.45 NS 1,000 ML IV SCH (22:03)
[2022-06-15] MEDS: ACETYLCYSTEINE 20% 4 ML VIAL (RT) INH SCH (23:29)
[2022-06-16] VITALS (21 sets, daily range): BP systolic 90–142
[2022-06-16] MEDS: HYDROmorphone 2 MG/ML VIAL IVP PRN (00:47)
[2022-06-16] MEDS: MORPHINE 4 MG INJ. 4 MG/ML VIAL IVP PRN ×5 (03:21→23:01)
[2022-06-16] MEDS: guaiFENesin 200 MG/10 ML UDC GT SCH ×6 (03:33→22:36)
[2022-06-16] MEDS: metroNIDAZOLE 500 mg/NS 100 ML IV SCH ×3 (05:47→21:57)
[2022-06-16 07:02] LABS: BASOPHILS % (AUTO) 0.2 % (0.0-2.0); EOSINOPHILS # (AUTO) 0.1 K/uL (0.0-0.4); EOSINOPHILS % (AUTO) 1.1 % (0.0-4.0); HEMATOCRIT 31.6 % (36-54); LYMPHOCYTES # (AUTO) 0.3 K/uL (1.0-5.5); LYMPHOCYTES % (AUTO) 6.8 % (20.5-51.5); MEAN CORPUSCULAR VOLUME 90 fL (79.0-98.0); MONOCYTES # (AUTO) 0.6 K/uL (0.0-1.0); MONOCYTES % (AUTO) 11.6 % (1.7-9.3); NEUTROPHILS % (AUTO) 80.3 % (40.0-70.0); PLATELET COUNT (AUTO) 113 K/uL (130-430); RED BLOOD CELL COUNT(AUTO) 3.53 MIL/uL (4.2-6.2); RED CELL DISTRIBUTION WIDTH 14.8 % (9.0-15.0); WHITE BLOOD COUNT (AUTO) 4.9 K/uL (4.8-10.8)
[2022-06-16] MEDS: ACETYLCYSTEINE 20% 4 ML VIAL (RT) INH SCH ×3 (07:30→23:02)
[2022-06-16] MEDS: LevALBUTEROL HCL 1.25 MG/0.5 ML *CONC.* VIAL.NEB (XOPENEX CONC.) INH SCH ×3 (07:30→23:02)
[2022-06-16 07:50] LABS: CALCIUM 7.4 mg/dL (8.4-11.0); CREATININE 0.84 mg/dL (0.55-1.30); PHOSPHORUS 2.8 mg/dL (2.7-4.5)
[2022-06-16] MEDS: FUROSEMIDE 40 MG/4 ML VIAL IVP SCH (09:28)
[2022-06-16] MEDS: PANTOPRAZOLE SODIUM 40 MG/VIAL (PROTONIX) IVP SCH (09:28)
[2022-06-16] MEDS: LACTOBACILLUS RHAMNOSUS GG 1 CAP CAPSULE PO SCH (09:28)
[2022-06-16] MEDS: predniSONE 5 MG TABLET PO SCH (09:29)
[2022-06-16] MEDS: TACROLIMUS ANHYDROUS 1 MG CAPSULE (PROGRAF) PO SCH ×2 (09:29→21:57)
[2022-06-16] MEDS: METOPROLOL SUCCINATE 25 MG TAB.SR.24H (TOPROL XL) PO SCH (09:30)
[2022-06-16] MEDS: ENOXAPARIN SODIUM 80 MG/0.8 ML SYRINGE SUBCUT SCH ×2 (09:30→21:57)
[2022-06-16] MEDS: BUDESONIDE 0.5 MG/2 ML AMPUL.NEB INH SCH ×2 (09:35→21:25)
[2022-06-16] MEDS: cefTRIAXone 1 GM in D5W 50 ML IV SCH (12:34)
[2022-06-16] MEDS: INSULIN REGULAR, HUMAN 100 UNITS/ML, 3 ML VIAL (humuLIN R) SUBCUT PRN ×3 (12:36→22:25)
[2022-06-16] MEDS ORDERED: ACETYLCYSTEINE 20% 4 ML VIAL (RT) INH SCH (14:04)
[2022-06-16] MEDS ORDERED: MAGNESIUM SULFATE 50 ML IV ONE (16:00)
[2022-06-16] MEDS ORDERED: MAGNESIUM SULFATE 1 GM in NS 100 ML IV ONE (16:00)
--- NOTE | 2022-06-16 17:50 | NUR ---
OFF VAPOTHERM AND PLACED ON OXYMIZER 3LPM. SPO2 98%, HR 81. PATIENT TOLERATING WELL.
--- NOTE | 2022-06-16 20:20 | NUR ---
Opening notes Pt AAOx3, VSS, no s/s distress noted. O2 3L via oxymizer satting at 98%. IVF infusing at ordered rate MIKKI PICC line dressing C/D/I. GT feeding Glucerna 1.5 running at 55cc/hr, no residual noted. NEAL drain x2 with minimal dark pink drainage noted. Call light within reach. To monitor.
[2022-06-16] MEDS ORDERED: TPN CENTRAL IV SCH ×10 (21:00)
[2022-06-16] MEDS ORDERED: POTASSIUM CHLORIDE IV SCH ×10 (21:00)
[2022-06-16] MEDS ORDERED: [UNRECOGNIZED DRUG - OTHER] IV SCH ×10 (21:00)
[2022-06-16] MEDS ORDERED: SODIUM CHLORIDE IV SCH ×10 (21:00)
[2022-06-16] MEDS: D5/0.45 NS 1,000 ML IV SCH (21:58)
[2022-06-17 01:27] VITALS: BP_SYST 106
[2022-06-17] MEDS: guaiFENesin 200 MG/10 ML UDC GT SCH ×6 (03:05→22:28)
[2022-06-17] MEDS: MORPHINE 4 MG INJ. 4 MG/ML VIAL IVP PRN ×2 (03:06→13:37)
[2022-06-17] MEDS: metroNIDAZOLE 500 mg/NS 100 ML IV SCH ×3 (06:17→21:26)
[2022-06-17] MEDS: INSULIN REGULAR, HUMAN 100 UNITS/ML, 3 ML VIAL (humuLIN R) SUBCUT PRN ×4 (06:32→21:40)
--- NOTE | 2022-06-17 07:00 | NUR ---
Closing notes/PICC dressing changed Pt alert, awake, no s/s distress noted. Pt on 3L oxymizer. MIKKI PICC line dressing changed per protocol, good blood return. Pt tolerating GT feeding well, no residual noted. Pt had a BM. Pt uses urinal. Call light within reach. Safety maintained. To endorse to AM nurse.
[2022-06-17 08:00] VITALS: BP_SYST 93
[2022-06-17] MEDS: ACETYLCYSTEINE 20% 4 ML VIAL (RT) INH SCH ×6 (08:05→23:06)
[2022-06-17] MEDS: LevALBUTEROL HCL 1.25 MG/0.5 ML *CONC.* VIAL.NEB (XOPENEX CONC.) INH SCH ×3 (08:05→23:05)
[2022-06-17 08:22] LABS: BASOPHILS % (AUTO) 0.5 % (0.0-2.0); EOSINOPHILS % (AUTO) 0.6 % (0.0-4.0); HEMATOCRIT 33.2 % (36-54); HEMOGLOBIN 11.2 g/dL (14.0-18.0); LYMPHOCYTES # (AUTO) 0.5 K/uL (1.0-5.5); LYMPHOCYTES % (AUTO) 11.8 % (20.5-51.5); MEAN CORPUSCULAR HEMOGLOBIN 30 pg (27-31); MEAN CORPUSCULAR HGB CONC 34 % (32-36); MEAN CORPUSCULAR VOLUME 90 fL (79.0-98.0); MONOCYTES # (AUTO) 0.7 K/uL (0.0-1.0); MONOCYTES % (AUTO) 14.7 % (1.7-9.3); NEUTROPHILS # (AUTO) 3.3 K/uL (1.8-7.7); NEUTROPHILS % (AUTO) 72.4 % (40.0-70.0); PLATELET COUNT (AUTO) 152 K/uL (130-430); RED BLOOD CELL COUNT(AUTO) 3.69 MIL/uL (4.2-6.2); RED CELL DISTRIBUTION WIDTH 14.8 % (9.0-15.0); WHITE BLOOD COUNT (AUTO) 4.5 K/uL (4.8-10.8)
[2022-06-17] MEDS: METOPROLOL SUCCINATE 25 MG TAB.SR.24H (TOPROL XL) PO SCH (09:00)
[2022-06-17] MEDS: FUROSEMIDE 40 MG/4 ML VIAL IVP SCH (09:00)
[2022-06-17] MEDS: predniSONE 5 MG TABLET PO SCH (09:25)
[2022-06-17] MEDS: LACTOBACILLUS RHAMNOSUS GG 1 CAP CAPSULE PO SCH (09:25)
[2022-06-17] MEDS: TACROLIMUS ANHYDROUS 1 MG CAPSULE (PROGRAF) PO SCH ×2 (09:26→21:25)
[2022-06-17] MEDS: ENOXAPARIN SODIUM 80 MG/0.8 ML SYRINGE SUBCUT SCH ×2 (09:27→21:26)
[2022-06-17] MEDS: PANTOPRAZOLE SODIUM 40 MG/VIAL (PROTONIX) IVP SCH (09:27)
[2022-06-17] MEDS ORDERED: levalbuterol HCL 0.63 MG/3 ML VIAL.NEB INH PRN (12:15)
[2022-06-17] MEDS: BUDESONIDE 0.5 MG/2 ML AMPUL.NEB INH SCH ×2 (12:24→20:05)
[2022-06-17] MEDS: levalbuterol HCL 0.63 MG/3 ML VIAL.NEB INH PRN ×2 (12:53→19:41)
[2022-06-17] MEDS: cefTRIAXone 1 GM in D5W 50 ML IV SCH (13:05)
[2022-06-17 13:37] VITALS: BP_SYST 103
[2022-06-17 13:40] VITALS: BP_SYST 88
[2022-06-17] MEDS ORDERED: ACETYLCYSTEINE 20% 4 ML VIAL (RT) INH ONE (16:30)
[2022-06-17 18:18] VITALS: BP_SYST 110
[2022-06-17 20:00] VITALS: BP_SYST 105
--- NOTE | 2022-06-17 20:13 | NUR ---
MD gates'd NEAL drain x2 Dr. Dacosta at bedside and yajaira'clau DE JESUS drain x2. No active bleeding noted. Per ok to remove abd shorty on the day of discharge. Pt tolerated well.
[2022-06-17] MEDS: D5/0.45 NS 1,000 ML IV SCH (21:00)
[2022-06-17] MEDS: HYDROmorphone 2 MG/ML VIAL IVP PRN (22:24)
[2022-06-18 01:44] VITALS: BP_SYST 102
[2022-06-18] MEDS: guaiFENesin 200 MG/10 ML UDC GT SCH ×6 (02:35→23:00)
[2022-06-18] MEDS: MORPHINE 4 MG INJ. 4 MG/ML VIAL IVP PRN (02:36)
--- NOTE | 2022-06-18 02:36 | NUR ---
Rounds/pain Pt c/o headache and requested Morphine, medicated with Morphine 4mg IVP as needed MIKKI PICC line. Pt verbalized he wants to go home. Suction set up within reach. To monitor.
[2022-06-18] MEDS: ACETYLCYSTEINE 20% 4 ML VIAL (RT) INH SCH ×10 (03:00→23:00)
[2022-06-18] MEDS: metroNIDAZOLE 500 mg/NS 100 ML IV SCH ×3 (06:41→21:17)
[2022-06-18] MEDS: LevALBUTEROL HCL 1.25 MG/0.5 ML *CONC.* VIAL.NEB (XOPENEX CONC.) INH SCH ×4 (07:00→23:00)
[2022-06-18] MEDS: BUDESONIDE 0.5 MG/2 ML AMPUL.NEB INH SCH ×2 (09:00→20:40)
[2022-06-18] MEDS: ENOXAPARIN SODIUM 80 MG/0.8 ML SYRINGE SUBCUT SCH ×2 (09:09→21:23)
[2022-06-18] MEDS: FUROSEMIDE 40 MG/4 ML VIAL IVP SCH (09:10)
[2022-06-18] MEDS: LACTOBACILLUS RHAMNOSUS GG 1 CAP CAPSULE PO SCH (09:11)
[2022-06-18] MEDS: METOPROLOL SUCCINATE 25 MG TAB.SR.24H (TOPROL XL) PO SCH (09:11)
[2022-06-18] MEDS: PANTOPRAZOLE SODIUM 40 MG/VIAL (PROTONIX) IVP SCH (09:12)
[2022-06-18] MEDS: TACROLIMUS ANHYDROUS 1 MG CAPSULE (PROGRAF) PO SCH ×2 (09:12→21:23)
[2022-06-18] MEDS: predniSONE 5 MG TABLET PO SCH (09:12)
[2022-06-18] MEDS: HYDROmorphone 2 MG/ML VIAL IVP PRN ×3 (12:19→22:13)
[2022-06-18] MEDS: INSULIN REGULAR, HUMAN 100 UNITS/ML, 3 ML VIAL (humuLIN R) SUBCUT PRN ×3 (12:54→21:27)
[2022-06-18] MEDS: cefTRIAXone 1 GM in D5W 50 ML IV SCH (13:07)
[2022-06-18] MEDS: D5/0.45 NS 1,000 ML IV SCH (13:09)
--- NOTE | 2022-06-18 17:10 | NUR ---
Nutrition F/U Admitting Diagnosis PEG tube bleeding Reviewed Pertinent Medical/Surgical Hx Medical Record, Primary RN, Patient, Significant Other Medical History Comment: per EMR: 62y male who presented to ED c/o bleeding from g tube. Recent admission to [facility] 05/21-06/02. Per RD initial assessment during previous visit - PMH: neck CA (Dx: ~4 mo ago per report), recent chemotherapy, liver transplant, and pacemaker per physician notes. 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 Patient had GT placed during last visit as a means of supplemental nutrition during chemo/radiation treatments. Patient is s/p CT abd/pelvis on 06/08. per MD notes: PMHx also includes CAD, DM, HTN, HLD, cirrhosis, dysphagia Subjective Information: [employer] Supervisor and RD rounded to pt bedside, pt A/O at time of visit. Pt's also present. Pt attests to tolerating TF well without difficulties. Witnessed TF infusing at goal rate of 55ml; 842ml infused at time of visit (yields 1263kcal). Pt attests to no N/V/C with some D but not worsening. Pt attests to 3 semi-hard BM today, typically has 2-3 BM per day. Bedscale wt taken: 156 lbs -- 12 lbs wt change compared to wt of 168# at last visit. Visual NFPE suggestive of mild fat loss/muscle wasting in temporal and orbital region, and moderate fat loss/muscle wasting in upper extremities. Pt attests to personal of goal of increasing physical activity upon transfer to [facility]. RD spoke with RN regarding D/C of D5 NS. RN stated waiting for MD orders to D/C. RD reminded RN to provide Mauricio to pt via FWF as pt's attests to pt not receiving any Mauricio today. Current Diet Order/Nutrition Support: Glucerna 1.5 at 55 ml/hr, Mauricio BID, Free Water Flush: 250ml Q6h via NGT x4 days Pertinent Meds: culturelle, lasix, SSI, prednisone, morphine, D5 NS at 40 Pertinent Labs: Reviewed Height 5'11" NEW Weight 156 pounds/70.9kg -- 168 pounds at admission 06/07 NEW Body Mass Index 21.8 kg/m2 NEW %IBW 91 [place]/Adjusted Body Weight 172lbs/78kg Recent Weight Change Yes - 168lbs last visit 06/14; now 156lbs = 12lbs/5.5kg wt loss x4 days Weight Status Appropriate Difficulty With: Chewing, Swallowing Food Allergies No Usual Diet At Home GT bolus feeds: Jevity 1.2 (237mL) cartons x 11/day + 150-200mL FWF TID Skin Integrity Comment: Theodore scale: 14; Sx abd incision; bilat ankle edema per EMR BL foot +1 edema noted 06/07 Current % PO 0% - NPO Estimated Energy Expenditure (kcals/day) 8315-8354 (30-35 kcal/kg IBW for wt gain promotion, CA) Estimated Protein Required (g/day) 94-117 (1.2-1.5 g/kg IBW for wt gain promotion, prevent loss of lean mass, CA) Estimated Fluid Required (l/day) 2.3-2.7 (1mL/kcal for maintenance) Problem/Etiology/Signs/Symptoms * Altered GI function r/t GT a/e/b bleeding at GT site requiring cauterization Sx. *Ongoing Expected Outcomes/Goals Nutrition initiated within 24h, nutrition provides >85% estimated nutrient needs, slow wt gain desired within 1-2lbs per week, BM q1-3 days, skin integrity Dietitian Recommendations * Continuous EN support: Glucerna 1.5 55 ml/hr (goal rate), Mauricio BID, Free Water Flush: 250 ml Q6h via GT Provides: 2140 kcal/day, 114 gm protein/day, and 2002 ml free water/day Meets: 91% of lower end of estimated caloric needs, 97% of upper end of estimated protein needs, and 87% of lower end of estimated fluid needs * If bolus feeding preferred, Glucerna 1.5 -- 1 carton (237 ml) Q4h, Mauricio BID, Free Water Flush: 250 ml Q6h via GT Provides: 2293 kcal/day, 123 gm protein/day, 2079 ml free water/day Meets: 98% of lower end of estimated caloric needs, 105% of lower end of estimated protein needs, and 90% of lower end of estimated fluid needs Follow Up High Risk: F/U in 2-3 days
--- NOTE | 2022-06-18 17:15 | NUR ---
Dietitian Recommendations * Continuous EN support: Glucerna 1.5 55 ml/hr (goal rate), Mauricio BID, Free Water Flush: 250 ml Q6h via GT Provides: 2140 kcal/day, 114 gm protein/day, and 2002 ml free water/day Meets: 91% of lower end of estimated caloric needs, 97% of upper end of estimated protein needs, and 87% of lower end of estimated fluid needs * If bolus feeding preferred, Glucerna 1.5 -- 1 carton (237 ml) Q4h, Mauricio BID, Free Water Flush: 250 ml Q6h via GT Provides: 2293 kcal/day, 123 gm protein/day, 2079 ml free water/day Meets: 98% of lower end of estimated caloric needs, 105% of lower end of estimated protein needs, and 90% of lower end of estimated fluid needs LP, MS, RD Please refer to Nutrition F/U for details.
--- NOTE | 2022-06-18 18:37 | NUR ---
pt A/Ox4,vss,on O2 2L/NC,sat 99%,coughing and able to suction himself with thick white secretions HOB up 30 degrees.on tube feeding glucerna 1.5 runs @ 55 cc per hr via GT.shorty intact in abdomen,no bleeding noted,IVF continue infusing via picc line in right upper arm, c/o generalized pain,give dilaudid 0.4mg IV as prn order for pain.needs attended,call light within pt reach,safety maintained.continue to monitor pt.
[2022-06-18 19:55] VITALS: BP_SYST 129
[2022-06-18 19:56] VITALS: BP_SYST 129
--- NOTE | 2022-06-18 20:00 | NUR ---
pt A/Ox4,vss,on O2 2L/NC,sat 99%,coughing and able to suction himself with thick white secretions HOB up 30 degrees.on tube feeding glucerna 1.5 runs @ 55 cc per hr via GT replaced .shorty intact in abdomen,no bleeding noted,IVF continue infusing via PICC line in right upper arm. Lungs are rhonchi, and pt uses bed ngo and urinal. call light within pt reach,safety maintained.continue to monitor pt.
[2022-06-18 20:03] VITALS: BP_SYST 129
[2022-06-18] MEDS: levalbuterol HCL 0.63 MG/3 ML VIAL.NEB INH PRN (20:05)
--- NOTE | 2022-06-19 | NUR ---
Pt recieve 0.4 dilaudid at 2200. Order for prn pain medication DC at 8120 06/18. Pt denies pain at the time, re-educated the patiet on the importance of not having nacotics to resolve pain, especially after discharge. Pt understood, ad offered comfort measures to releive head ache. will continue to monitor.
[2022-06-19 00:25] VITALS: BP_SYST 133
[2022-06-19] MEDS: guaiFENesin 200 MG/10 ML UDC GT SCH ×4 (03:00→15:02)
--- NOTE | 2022-06-19 03:17 | NUR ---
Pt double counts on monitor, resourse GHASSAN Rinaldi invereted the red and black lead to not show a double cout. pt hr @ 89 curently. will endorse to AM shift.
--- NOTE | 2022-06-19 04:41 | NUR ---
PAGED DOCTOR NAHOMI
--- NOTE | 2022-06-19 05:26 | NUR ---
REPAGED DOCTOR NAHOMI
--- NOTE | 2022-06-19 05:43 | NUR ---
PAGED AGAIN FOR NAHOMI
[2022-06-19] MEDS: INSULIN REGULAR, HUMAN 100 UNITS/ML, 3 ML VIAL (humuLIN R) SUBCUT PRN (05:53)
[2022-06-19 06:56] LABS: BASOPHILS % (AUTO) 0.2 % (0.0-2.0); EOSINOPHILS % (AUTO) 0.1 % (0.0-4.0); HEMATOCRIT 32.2 % (36-54); HEMOGLOBIN 10.9 g/dL (14.0-18.0); LYMPHOCYTES # (AUTO) 0.5 K/uL (1.0-5.5); LYMPHOCYTES % (AUTO) 6.7 % (20.5-51.5); MEAN CORPUSCULAR HEMOGLOBIN 30 pg (27-31); MEAN CORPUSCULAR HGB CONC 34 % (32-36); MEAN CORPUSCULAR VOLUME 89 fL (79.0-98.0); MONOCYTES # (AUTO) 0.7 K/uL (0.0-1.0); MONOCYTES % (AUTO) 9.3 % (1.7-9.3); NEUTROPHILS % (AUTO) 83.7 % (40.0-70.0); PLATELET COUNT (AUTO) 211 K/uL (130-430); RED BLOOD CELL COUNT(AUTO) 3.62 MIL/uL (4.2-6.2); RED CELL DISTRIBUTION WIDTH 14.7 % (9.0-15.0); WHITE BLOOD COUNT (AUTO) 7.1 K/uL (4.8-10.8)
[2022-06-19] MEDS: BUDESONIDE 0.5 MG/2 ML AMPUL.NEB INH SCH (07:36)
[2022-06-19] MEDS: LevALBUTEROL HCL 1.25 MG/0.5 ML *CONC.* VIAL.NEB (XOPENEX CONC.) INH SCH ×2 (07:36→14:54)
[2022-06-19] MEDS: ACETYLCYSTEINE 20% 4 ML VIAL (RT) INH SCH ×3 (07:37→14:53)
[2022-06-19 07:52] VITALS: BP_SYST 117
[2022-06-19 08:00] VITALS: BP_SYST 135
[2022-06-19 08:13] LABS: CALCIUM 8.5 mg/dL (8.4-11.0); CREATININE 0.77 mg/dL (0.55-1.30); POTASSIUM 4.6 mmol/L (3.5-5.1)
[2022-06-19 08:45] VITALS: BP_SYST 135
[2022-06-19] MEDS: predniSONE 5 MG TABLET PO SCH (09:53)
[2022-06-19] MEDS: PANTOPRAZOLE SODIUM 40 MG/VIAL (PROTONIX) IVP SCH (09:53)
[2022-06-19] MEDS: LACTOBACILLUS RHAMNOSUS GG 1 CAP CAPSULE PO SCH (09:53)
[2022-06-19] MEDS: FUROSEMIDE 40 MG/4 ML VIAL IVP SCH (09:54)
[2022-06-19] MEDS: TACROLIMUS ANHYDROUS 1 MG CAPSULE (PROGRAF) PO SCH (09:55)
[2022-06-19] MEDS: METOPROLOL SUCCINATE 25 MG TAB.SR.24H (TOPROL XL) PO SCH (09:56)
--- NOTE | 2022-06-19 11:03 | NUR ---
Nutrition Note RD spoke w/ pharmD this morning after LOS meeting regarding pt's D5NS IV at 40 ml/hr and pt's elevated BG levels. Pt is already meeting goal rate for EN support via GT continuous feeding. She stated pt is on D5NS at 40 ml/hr per protocol after TPN infusion was tapered off -- she stated to contact Dr. Ambrosio for D/C orders. NANNETTE called [facility] -- lindy callejas. Will try again later. Addendum: 06/19/22 at [address] NANNETTE called Dr. Ambrosio's office again -- lindy callejas. Addendum: 06/19/22 at [address] NANNETTE called Dr. Ambrosio's office again (third attempt) -- busy line.
[2022-06-19] MEDS: ENOXAPARIN SODIUM 80 MG/0.8 ML SYRINGE SUBCUT SCH (11:18)
[2022-06-19] MEDS ORDERED: cefTRIAXone 1 GM in D5W 50 ML IV SCH (13:00)
--- NOTE | 2022-06-19 15:13 | NUR ---
home health order & Dme order received, waiting for agency to be assigned and ETA for home O2
[2022-06-19 16:00] VITALS: BP_SYST 110
--- NOTE | 2022-06-19 16:03 | NUR ---
ABG results sent to Karla at [facility] -[phone]-she will order O2 for the patient
[2022-06-19 16:34] VITALS: BP_SYST 110
--- NOTE | 2022-06-19 16:46 | NUR ---
pt d/c with via automobile under stable conditions. Pt sutures/shorty removed by PA. steri-strips applied with packing. Pt v/s are stable. Pt and family informed about waiting for tank to arrived to [facility] 1st prior to d/c. Pt refused and insist to being d/c. Pt and family is fully informed about risks of this.
--- NOTE | 2022-06-19 17:05 | NUR ---
Picc line removed as per MD orders Addendum: 06/19/22 at 1706 by [facility], GHASSAN FERRELL pressure dressing applied at site, pt denies any distress.
--- NOTE | 2022-06-20 09:38 | NUR ---
Dispo code 06
[2022-06-29 15:06] LABS: HEMOGLOBIN 7.1 g/dL (14.0-18.0)
== END 2022-06-19 16:55 | disposition home health service (06) | DRG 335 ==
LOC: SED 15:13 → UNDOADMOB 22:01 → INTOOBSV 22:01 → OBSVTOIN 22:01 → STU 22:01 → SIC 23:10 → STU 06-07 09:16 → OBSVTOIN 06-07 09:16 → UNDOADMOB 06-07 09:16 → INTOOBSV 06-07 09:16 → SIC 06-07 09:16 → STU 06-07 10:20
PROVIDERS: ADMIT Internal Medicine; ATTEND Internal Medicine
PROC: 3E0 Administration, Physiological Systems and Anatomical Regions, Introduction (ICD-10-PCS; 2022-06-08)
PROC: 30233N1 Transfusion of Nonautologous Red Blood Cells into Peripheral Vein, Percutaneous Approach (ICD-10-PCS; 2022-06-08)
PROC: 0D9W0ZZ Drainage of Peritoneum, Open Approach (ICD-10-PCS; 2022-06-09)
PROC: 0DP6XUZ Removal of Feeding Device from Stomach, External Approach (ICD-10-PCS; 2022-06-09)
PROC: 0DH60UZ Insertion of Feeding Device into Stomach, Open Approach (ICD-10-PCS; 2022-06-09)
PROC: 0HD9XZZ Extraction of Perineum Skin, External Approach (ICD-10-PCS; 2022-06-09)
PROC: 30233R1 Transfusion of Nonautologous Platelets into Peripheral Vein, Percutaneous Approach (ICD-10-PCS; 2022-06-09)
PROC: 0DNU0ZZ Release Omentum, Open Approach (ICD-10-PCS; principal; 2022-06-09 08:34)
DX: K94.23 Gastrostomy malfunction (principal); E43 Unspecified severe protein-calorie malnutrition; J96.01 Acute respiratory failure with hypoxia; R57.1 Hypovolemic shock; K29.81 Duodenitis with bleeding; K29.71 Gastritis, unspecified, with bleeding; K31.6 Fistula of stomach and duodenum; Z94.4 Liver transplant status; E87.20 Acidosis, unspecified; B37.0 Candidal stomatitis; E88.09 Other disorders of plasma-protein metabolism, not elsewhere classified; I25.10 Atherosclerotic heart disease of native coronary artery without angina pectoris; D69.6 Thrombocytopenia, unspecified; E87.6 Hypokalemia; E83.52 Hypercalcemia; Z20.822 Contact with and (suspected) exposure to COVID-19; E78.5 Hyperlipidemia, unspecified; K74.60 Unspecified cirrhosis of liver; R13.10 Dysphagia, unspecified; D09.8 Carcinoma in situ of other specified sites; I10 Essential (primary) hypertension; D64.9 Anemia, unspecified; Z95.0 Presence of cardiac pacemaker; Z68.23 Body mass index [BMI] 23.0-23.9, adult; Z85.89 Personal history of malignant neoplasm of other organs and systems; Z85.818 Personal history of malignant neoplasm of other sites of lip, oral cavity, and pharynx; Z85.01 Personal history of malignant neoplasm of esophagus; Z88.2 Allergy status to sulfonamides
CPT/HCPCS: 36415; 36430; 36600; 43255; 71045; 72191; 74175; 74240-TC; 76376; 76604; 80048; 80053; 82570; 82803-TC; 82962; 83605; 83690; 83735; 84100; 84302; 84478; 85018; 85025; 85049-TC; 85379; 85384; 85610-TC; 85730-TC; 86886; 86900; 86901; 86920; 87040; 92610-GN; 93005; 93971; 94002; 94640; 94668; 94760; 96374; 96375; 97116-GP; 97530-GP; 99291; C9113; G0378; J0171; J0330; J0610; J0696; J1030; J1120; J1170; J1644; J1650; J1815; J1940; J2060; J2175; J2250; J2270; J2405; J2543; J2704; J3475; J3480; J3490; J7030; J7050; J7060; J7131; J7507; J7512; J7608; J7612; J7614; J7626; P9021; P9034; Q9963; Q9967; U0003